=== PATIENT | male | born 2000 | race Caucasian/White ===

== ENCOUNTER 2019-03-09 15:03 | Observation (INO) ==
--- NOTE | 2019-03-09 15:17 | Emergency Department Note ---
ED Disposition Clinical Impression: Spontaneous pneumothorax Disposition: Admitted as Observation Condition on Discharge: Fair Instructions: DI for Pneumothorax Additional Instructions: Patient being admitted for 100% oxygen therapy to see if the spontaneous pneumothorax resolves if it does not he may need to have a small chest tube inserted Referrals: Srinivasan Piper MD [Primary Care Provider] - Time of Disposition: 15:52 - Critical Care Critical Care Time: No Attestation: On , the high probability of a clinically significant, sudden or life threatening deterioration of the following system(s) required my full and direct attention, intervention and personal management. The time I documented below is in addition to time spent performing reported procedures but includes the following listed in this critical care notation. Medical Decision Making - Medical Records Medical records reviewed: Yes: I reviewed the patient's medical records. - Ladarius Inquiry Pt receiving controlled substance: No Ladarius was queried for this patient: No Vital Signs: 03/09/19 15:10 Temperature 98.3 F Temperature Source Oral Pulse Rate [Right Radial] 110 H Respiratory Rate 18 Blood Pressure [Right Arm] 116/75 Blood Pressure Mean [Right Arm] 88 Blood Pressure Source [Right Arm] Automatic Cuff Blood Pressure Position [Right Arm] Sitting 02 Sat by Pulse Oximetry 98 Oxygen Delivery Method Room Air - Radiology Data #1 Image(s): Chest Image Reviewed: Yes I reviewed the patient's radiology results, Yes I reviewed the patient's radiology image, Yes I have reviewed radiologist's interpretation Repeat chest x-ray today shows the apical pneumothorax to be a little bit bigger than it was yesterday I spoke with Dr. Busch about this Chest Pain HPI - General Stated Complaint: follow up colapsed lung 02/06/19 Time Seen by Provider: 03/09/19 15:14 Source of Information: Patient - History of Present Illness HPI narrative: Patient was seen in the emergency room yesterday with right-sided chest pain worse with taking a deep breath he was found on chest x-ray to have less than 10% apical pneumothorax was treated with some high flow oxygen and sent home with instructions to return to the emergency room today to have a repeat chest x-ray done at this time he says that his pain is much better but still feels a little bit of pain Duration: intermittent - Related Data Home Medications Medication Instructions Recorded Confirmed Cetirizine HCl [All Day Allergy 10 mg PO DAILY 03/08/19 03/08/19 (cetirizine)] Previous Rx's Medication Instructions Recorded albuterol sulfate HFA 90 2 inh INHALATION Q6H PRN 30 Days 01/13/19 mcg/actuation aerosol inhaler #18 g Allergies Allergy/AdvReac Type Severity Reaction Status Date / Time penicillin G [PENICILLIN G] Allergy Intermediate I-RASH Verified 09/05/18 13:18 [facility] History - Hepatitis A Screen Attestation statement:: This patient has been screened for Hepatitis A risk factors. I have reviewed the patient's past medical history: Yes Medical History: Reports:: Asthma Denies:: Cancer, Diabetes Mellitus Type 1, Diabetes Mellitus Type 2, MRSA Laterality Cases: Bilateral: Tonsillectomy Other Surgeries: Yes: No Previous Surgery, Other Amputation: No Fractures: No - 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 Smoking Status: Never smoker Alcohol Intake: never Substance Use Type: denies use Occupational Status: employed, student Housing: house Household Members: family Family Hx:: Asthma, Cancer, Diabetes ROS Obtained: Yes All systems reviewed & no additional complaints, Yes Systems reviewed as appropriate & no additional complaints - Respiratory Respiratory: Yes system reviewed and no additional complaints, except as docu, Yes as per HPI Physical Exam - General General appearance: alert, in no apparent distress - Head Head exam: atraumatic - Eye Eye exam: Present: normal appearance - ENT ENT exam: Present: normal exam - Neck Neck exam: Present: normal inspection - Chest Chest inspection: Present: normal inspection - Respiratory Respiratory exam: Present: normal lung sounds bilaterally - Cardiovascular Cardiovascular exam: Present: regular rate - Neurological Exam Neurological exam: Present: alert, oriented X3 - Psychiatric Psychiatric exam: Present: normal affect
[2019-03-10 06:19] LABS: Basophils # 0.1 K/mm3 (0-0.2); Basophils % 1.4 % (0.1-2.0); Eosinophils # 0.1 K/mm3 (0.0-0.4); Hematocrit 45.1 % (42.0-52.0); Hemoglobin 14.7 g/dL (14.1-18.0); Lymphocytes # 2.6 K/mm3 (0.7-4.5); Lymphocytes % 37.4 % (10-50); Mean Corpuscular HGB Conc 32.6 g/dL (31.8-35.4); Mean Corpuscular Volume 94.8 fl (80-94); Monocytes # 0.7 K/mm3 (0.1-1.0); Monocytes % 9.7 % (1.7-9.3); Neutrophils # 3.5 K/mm3 (1.8-7.8); Neutrophils % 49.6 % (37.0-80.0); Platelet Count 230 K/mm3 (142-424); Red Blood Count 4.76 M/mm3 (4.60-6.20); Red Cell Distribution Width 13.2 % (11.5-17.5)
[2019-03-10 06:28] LABS: INR 1.14 (0.9-1.1); Prothrombin Time 11.8 seconds (9.4-11.8)
[2019-03-10 06:51] LABS: Albumin Level 3.7 gm/dL (3.4-5.0); Albumin/Globulin Ratio 1.4 (1.1-1.8); Anion Gap 12.4 mEq/L (5-15); Bilirubin,Total 0.7 mg/dL (0.2-1.0); Calcium 8.5 mg/dL (8.5-10.1); Globulin 2.6 gm/dl (1.3-3.2); Total Protein,Serum 6.3 gm/dL (6.4-8.2)
--- NOTE | 2019-03-10 07:26 | Pharmacy Consult Notes ---
[facility] Pharmacy VTE Monitoring - Patient Demographics Admission date: 03/09/19 Report Date: 03/10/19 Time: 07:26 Allergies/Adverse Reactions: Patient Allergies penicillin G [PENICILLIN G] Allergy (Intermediate, Verified 09/05/18 13:18) I-RASH Height: 1.85 m Weight: 60.016 kg Patient Problems: Current Active Problems Spontaneous pneumothorax (Acute) - VTE Risk Labs: VTE Related Lab Results Hgb 14.7 g/dL (14.1-18.0) 03/10/19 05:55 Hct 45.1 % (42.0-52.0) 03/10/19 05:55 Plt Count 230 K/mm3 (142-424) 03/10/19 05:55 PT 11.8 seconds (9.4-11.8) 03/10/19 05:55 INR 1.14 (0.9-1.1) H 03/10/19 05:55 BUN 9 mg/dL (7-18) 03/10/19 05:55 Creatinine 0.80 mg/dL (0.70-1.30) 03/10/19 05:55 Estimated Creat Clear 126 mL/min (50-200) 03/10/19 05:55 - Prophylaxis VTE Prophylaxis Ordered?: Yes Types of VTE Prophylaxis: TEDS Knee High Location of Applied Device: Bilateral Lower Extremeties - VTE Diagnosis Confirmed Treatment or plan recommended: Continue Current Treatment
--- NOTE | 2019-03-10 11:16 | Consult Report ---
*Admission Date: 03/09/19 *Reason for consult:: Right pneumothorax *History of present illness: This is a 18-year-old gentleman who is being seen in consultation from the service of Dr. Piper for evaluation regarding a spontaneous right-sided pneumothorax. He presented 2 days ago with increasing pain with respiration. No definitive shortness of air. A chest x-ray revealed an approximately 10% pneumothorax on the right side. He was temporarily placed on supplemental oxygen. He was essentially without symptoms after evaluation and the decision was made to discharge with close follow-up. Yesterday he presented for repeat chest films and no resolution of his pneumothorax noted. Films earlier today revealed stable pneumothorax. Review of Systems - Constitutional Denies chills - Eyes Denies change in vision - ENT Denies difficulty swallowing - *Cardiovascular Denies chest pain at rest - *Respiratory Denies cough [facility] [place] History Medical History: Reports:: Asthma Denies:: Cancer, Diabetes Mellitus Type 1, Diabetes Mellitus Type 2, MRSA *Have you ever received a pneumonia vaccine?: No *Have you received a flu vaccine this season?: No Laterality Cases: Bilateral: Tonsillectomy Other Surgeries: Yes: No Previous Surgery, Other Amputation: No Fractures: No - *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 Smoking Status: Never smoker Alcohol Intake: never Substance Use Type: denies use *Occupational Status:: employed Housing: house Household Members: family *Travel in the last 8 weeks: None Family Hx:: Asthma, Cancer, Diabetes Meds Home Medications Medication Instructions Recorded Confirmed Type albuterol sulfate HFA 90 2 inh INHALATION Q6H PRN 30 Days 01/13/19 03/09/19 Rx mcg/actuation aerosol inhaler #18 g Cetirizine HCl [All Day Allergy 10 mg PO DAILY 03/08/19 03/09/19 History (cetirizine)] Albuterol Sulfate [Albuterol 2.5 mg IH Q4HP PRN 03/10/19 03/10/19 History 0.083% 2.5mg/3mL neb] Allergies Allergy/AdvReac Type Severity Reaction Status Date / Time penicillin G [PENICILLIN G] Allergy Intermediate I-RASH Verified 09/05/18 13:18 Exam Vital signs and Labs for Last 24 Hours: Temp Pulse Resp BP Pulse Ox 98.3 F 75 17 126/69 100 03/10/19 08:00 03/10/19 08:00 03/10/19 08:00 03/10/19 08:00 03/10/19 08:00 Laboratory Results - last 24 hr 03/10/19 05:55: WBC 7.0, RBC 4.76, Hgb 14.7, Hct 45.1, MCV 94.8 H, MCH 30.9, MCHC 32.6, RDW 13.2, Plt Count 230, MPV 7.0 L, Neut % (Auto) 49.6, Lymph % (Auto) 37.4, [place] % (Auto) 9.7 H, Eos % (Auto) 2.0, Baso % (Auto) 1.4, Neut # (Auto) 3.5, Lymph # (Auto) 2.6, [place] # (Auto) 0.7, Eos # (Auto) 0.1, Baso # (Auto) 0.1 03/10/19 05:55: PT 11.8, INR 1.14 H 03/10/19 05:55: Sodium 142, Potassium 4.4, Chloride 108 H, Carbon Dioxide 26, Anion Gap 12.4, BUN 9, Creatinine 0.80, Estimated Creat Clear 126, Estimated GFR 125, Est GFR ( Amer) 151, Glucose 94, Calcium 8.5, Magnesium 1.9, Total Bilirubin 0.7, AST 13 L, ALT 17, Alkaline Phosphatase 72, Total Protein 6.3 L, Albumin 3.7, Globulin 2.6, Albumin/Globulin Ratio 1.4 I & O for Last 24 hours: Intake & Output 03/07/19 03/08/19 03/09/19 03/10/19 11:59 11:59 11:59 11:59 Intake Total 1073 / 1073 Balance 1073 / 1073 Weight 132 lb 5 oz - Constitutional no acute distress - *Routine Respiratory Exam Absent: respiratory distress - *Routine Cardiovascular Exam Present: RRR Results - Labs 03/10/19 05:55 03/10/19 05:55 Laboratory Results - last 24 hr 03/10/19 05:55: WBC 7.0, RBC 4.76, Hgb 14.7, Hct 45.1, MCV 94.8 H, MCH 30.9, MCHC 32.6, RDW 13.2, Plt Count 230, MPV 7.0 L, Neut % (Auto) 49.6, Lymph % (Auto) 37.4, [place] % (Auto) 9.7 H, Eos % (Auto) 2.0, Baso % (Auto) 1.4, Neut # (Auto) 3.5, Lymph # (Auto) 2.6, [place] # (Auto) 0.7, Eos # (Auto) 0.1, Baso # (Auto) 0.1 03/10/19 05:55: PT 11.8, INR 1.14 H 03/10/19 05:55: Sodium 142, Potassium 4.4, Chloride 108 H, Carbon Dioxide 26, Anion Gap 12.4, BUN 9, Creatinine 0.80, Estimated Creat Clear 126, Estimated GFR 125, Est GFR ( Amer) 151, Glucose 94, Calcium 8.5, Magnesium 1.9, Total Bilirubin 0.7, AST 13 L, ALT 17, Alkaline Phosphatase 72, Total Protein 6.3 L, Albumin 3.7, Globulin 2.6, Albumin/Globulin Ratio 1.4 - Imaging Chest x-ray: report reviewed, image reviewed Assessment and Plan (1) Spontaneous pneumothorax Current visit: Yes Status: Acute Category: Medical Code(s): J93.83 - Other pneumothorax Stable spontaneous pneumothorax without obvious sign of resolution. The patient is essentially without symptoms currently. Repeat chest x-ray later this afternoon. If his pneumothorax remains stable subsequent discharge with close outpatient follow-up is reasonable. I have recommended that the patient reside for the next few days at a family member's house that is "in town close to the hospital". He certainly may require chest tube placement and may ultimately require surgical intervention; however, as this represents his first episode AND since he is currently asymptomatic AND the pneumothorax does not seem to be expanding... it is reasonable to proceed at least initially without intervention.
--- NOTE | 2019-03-10 14:10 | H&P/Discharge Summary ---
General - General Admission date:: 03/09/19 Discharge date: 03/10/19 *Admission Date: 03/09/19 *Chief complaint: R Side pain *History of present illness: This is a 18-year-old gentleman who is being seen in consultation from the service of Dr. Piper for evaluation regarding a spontaneous right-sided pneumothorax. He presented 2 days ago with increasing pain with respiration. No definitive shortness of air. A chest x-ray revealed an approximately 10% pneumothorax on the right side. He was temporarily placed on supplemental oxygen. He was essentially without symptoms after evaluation and the decision was made to discharge with close follow-up. Yesterday he presented for repeat chest films and no resolution of his pneumothorax noted. Films earlier today revealed stable pneumothorax (Per Dr. Gandara). [facility] History Medical History: Reports:: Asthma Denies:: Cancer, Diabetes Mellitus Type 1, Diabetes Mellitus Type 2, MRSA *Have you ever received a pneumonia vaccine?: No *Have you received a flu vaccine this season?: No Laterality Cases: Bilateral: Tonsillectomy Other Surgeries: Yes: No Previous Surgery, Other Amputation: No Fractures: No - *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 Smoking Status: Never smoker Alcohol Intake: never Substance Use Type: denies use *Occupational Status:: employed Housing: house Household Members: family *Travel in the last 8 weeks: None Family Hx:: Asthma, Cancer, Diabetes Review of Systems - Review of Systems Review of systems:: pertinent systems reviewed and negative unless documented below - Constitutional Denies anorexia, Denies night sweats - Eyes Denies blind spots, Denies blurry vision - ENT Denies dizziness, Denies difficulty swallowing - *Cardiovascular Denies chest pain, Denies generalized swelling - *Respiratory Denies chest congestion, Denies cough - *Gastrointestinal Denies abdominal pain, Denies excessive passing of gas, Denies incontinent of stools - *Genitourinary Denies difficulty urinating, Denies painful urination - *Musculoskeletal Denies abnormal walking, Denies joint pain - Integumentary/Breasts Denies hair loss, Denies bleeding lesions - *Neurologic Denies abnormal walking, Denies behavioral changes - Psychiatric Denies abnormal sleep pattern, Denies hearing things others do not hear, Denies behavioral changes - Endocrine Denies cold intolerance, Denies heat intolerance - Hematologic/Lymphatic Denies easy bleeding, Denies easy bruising - Allergic/Immunologic Denies throat swelling, Denies tongue swelling Exam Vital signs and Labs for Last 24 Hours: Temp Pulse Resp BP Pulse Ox 98.3 F 75 17 126/69 100 03/10/19 08:00 03/10/19 08:00 03/10/19 08:00 03/10/19 08:00 03/10/19 08:00 Laboratory Results - last 24 hr 03/10/19 05:55: WBC 7.0, RBC 4.76, Hgb 14.7, Hct 45.1, MCV 94.8 H, MCH 30.9, MCHC 32.6, RDW 13.2, Plt Count 230, MPV 7.0 L, Neut % (Auto) 49.6, Lymph % (Auto) 37.4, [place] % (Auto) 9.7 H, Eos % (Auto) 2.0, Baso % (Auto) 1.4, Neut # (Auto) 3.5, Lymph # (Auto) 2.6, [place] # (Auto) 0.7, Eos # (Auto) 0.1, Baso # (Auto) 0.1 03/10/19 05:55: PT 11.8, INR 1.14 H 03/10/19 05:55: Sodium 142, Potassium 4.4, Chloride 108 H, Carbon Dioxide 26, Anion Gap 12.4, BUN 9, Creatinine 0.80, Estimated Creat Clear 126, Estimated GFR 125, Est GFR ( Amer) 151, Glucose 94, Calcium 8.5, Magnesium 1.9, Total Bilirubin 0.7, AST 13 L, ALT 17, Alkaline Phosphatase 72, Total Protein 6.3 L, Albumin 3.7, Globulin 2.6, Albumin/Globulin Ratio 1.4 I & O for Last 24 hours: Intake & Output 03/07/19 03/08/19 03/09/19 03/10/19 23:59 23:59 23:59 23:59 Intake Total 1553 / 1553 Balance 1553 / 1553 Weight 127 lb 2 oz 132 lb 5 oz - Constitutional no acute distress - *Routine HEENT Exam Head: Present: normocephalic, atraumatic Eye: Present: EOMI, PERRL, normal accommodation ENT: Present: mucous membranes moist - *Routine Neck Exam Present: supple, trachea midline. Absent: JVD, tenderness - *Routine Respiratory Exam Present: CTA bilaterally. Absent: accessory muscle use, rales, respiratory distress - *Routine Cardiovascular Exam Present: RRR - *Routine Abdominal Exam Present: soft, normoactive bowel sounds. Absent: tenderness, firm - *Routine Extremities Exam Present: full ROM, pulses intact. Absent: cyanosis, calf tenderness - Routine Back/Spine/Pelvis Exam Back/Spine: Present: full ROM. Absent: CVA tenderness - *Routine Skin Exam Present: intact, warm. Absent: cyanosis, jaundice - *Routine Neurological Exam Present: alert, oriented X3, CN II-XII intact. Absent: pronator drift, abnormal gait - Routine Psychiatric Exam Present: normal affect, normal thought process. Absent: visual hallucinations, tactile hallucinations Hospital Course Hospital Course: 18-year-old male patient sitting up in bed eating breakfast, denies any chest pain or shortness of breath, or any other concerns at this time 18-year-old male presented 2 days ago with increasing pain with respiration. No definitive shortness of air. A chest x-ray revealed an approximately 10% pneumothorax on the right side. He was temporarily placed on supplemental oxygen. He was essentially without symptoms after evaluation and the decision was made to discharge with close follow-up. Yesterday he presented for repeat chest films and no resolution of his pneumothorax noted. Films earlier today revealed stable pneumothorax. Chest x-ray this a.m. showed unchanged. Chest x-ray this afternoon showed a slightly decreased pneumothorax. Patient denies any pain, shortness of breath, or any other concerns. General surgery is seen and said that he can be released home. Will encourage patient to follow-up and Dr. Piper's office in 1 week. Patient is agreeable to these suggestions. Results Labs on day of discharge: Labs from last 24 hours 03/10/19 03/10/19 03/10/19 05:55 05:55 05:55 WBC 7.0 RBC 4.76 Hgb 14.7 Hct 45.1 MCV 94.8 H MCH 30.9 MCHC 32.6 RDW 13.2 Plt Count 230 MPV 7.0 L Neut % (Auto) 49.6 Lymph % (Auto) 37.4 [place] % (Auto) 9.7 H Eos % (Auto) 2.0 Baso % (Auto) 1.4 Neut # (Auto) 3.5 Lymph # (Auto) 2.6 [place] # (Auto) 0.7 Eos # (Auto) 0.1 Baso # (Auto) 0.1 PT 11.8 INR 1.14 H Sodium 142 Potassium 4.4 Chloride 108 H Carbon Dioxide 26 Anion Gap 12.4 BUN 9 Creatinine 0.80 Estimated Creat Clear 126 Estimated GFR 125 Est GFR ( Amer) 151 Glucose 94 Calcium 8.5 Magnesium 1.9 Total Bilirubin 0.7 AST 13 L ALT 17 Alkaline Phosphatase 72 Total Protein 6.3 L Albumin 3.7 Globulin 2.6 Albumin/Globulin Ratio 1.4 - Additional Comments Rounded with Dr. Piper, all orders per Dr. Piper 1. We will discharge home today with follow-up in office next week DS: Diagnosis - Discharge Diagnosis (1) Spontaneous pneumothorax Status: Acute Discharge Plan - Patient Discharge Instructions ACTIVITY: Continue current activity DIET: continue same diet - Follow up Plan Follow up with: Tyler Naik APRN [Nurse Practitioner] - 1 week Disposition: Home, Self-Fpc Medications: Home Medications Medication Instructions Recorded Confirmed Type albuterol sulfate HFA 90 2 inh INHALATION Q6H PRN 30 Days 01/13/19 03/09/19 Rx mcg/actuation aerosol inhaler #18 g Cetirizine HCl [All Day Allergy 10 mg PO DAILY 03/08/19 03/09/19 History (cetirizine)] Albuterol Sulfate [Albuterol 2.5 mg IH Q4HP PRN 03/10/19 03/10/19 History 0.083% 2.5mg/3mL neb] Prescriptions/Medication Reconciliation: Continued albuterol sulfate HFA 90 mcg/actuation aerosol inhaler 2 inh INHALATION Q6H PRN 30 Days #18 g PRN Reason: shortness of breath or wheezing Albuterol Sulfate [Albuterol 0.083% 2.5mg/3mL neb] 2.5 mg IH Q4HP PRN PRN Reason: Shortness Of Breath Cetirizine HCl [All Day Allergy (cetirizine)] 10 mg PO DAILY - Problem Reconciliation Problems Reviewed?: Yes
== END 2019-03-10 16:20 | disposition home or self-care (01) ==
LOC: ER 15:03 → 2ND 15:03
PROVIDERS: ADMIT Emergency Medicine; ATTEND Emergency Medicine
DX: J93.83 Other pneumothorax
CPT/HCPCS: 36415; 71020; 71046; 80053; 83735; 85025; 85610; 94761; 99283; G0378

== ENCOUNTER → 2019-03-15 14:30 | Outpatient (CLI) | payer OTHER, SELFPAY ==
--- NOTE | 2019-03-15 14:36 | XR_ITS ---
PROCEDURE: XR CHEST 2V CLINICAL HISTORY: pneumothorax Follow-up pneumothorax COMPARISON: XR CHEST 2V from 03/09/2019 XR CHEST 2V from 03/10/2019 XR CHEST 2V from 03/10/2019 FINDINGS: The cardiomediastinal silhouette and pulmonary vascularity are within normal limits. The lungs are clear without infiltrates, suspicious nodules, or pleural effusions. Previously noted right apical pneumothorax is not readily apparent on today's exam. There is a faint density along the inferior aspect of the right 1st rib consistent with a earth burner shadow. IMPRESSION: Resolved right apical pneumothorax Dictated by: Cayden Busch MD 03/15/2019 15:01 Electronically signed by Cayden Busch MD in [place] 03/15/2019 15:01
== END ==
PROVIDERS: PCP Emergency Medicine; Visit Provider Surgery
DX: Z12.11 Encounter for screening for malignant neoplasm of colon (principal)
CPT/HCPCS: 71046

== ENCOUNTER 2019-12-31 15:18 | Emergency (ER) | payer OTHER, SELFPAY ==
--- NOTE | 2019-12-31 15:12 | ECG_ITS ---
APPROVED REPORT Exam: Resting ECG HR:76 bpm ECG Measurements Heart Rate 76 AXES VA 114 P 60 QRSd 122 QRS 87 QT 368 T 58 QTc 414 <Conclusion> Normal sinus rhythm with sinus arrhythmia Right bundle branch block Abnormal ECG Electronically signed by : John Vang, 12/31/2019 21:46:51
[2019-12-31 15:19] VITALS: BP 153/80; PULSE 82; RESP 18; TEMP 36.6; O2SAT 100; BMI 17.6
--- NOTE | 2019-12-31 15:22 | PC.NURSE ---
ER at BS performing BS ultrasound
--- NOTE | 2019-12-31 15:24 | XR_ITS ---
PROCEDURE: XR CHEST 2V Patient Age:19Y CLINICAL HISTORY: Chest pain: Short of breath, hx of spontaneous pneumo. COMPARISON: XR CHEST 2V from 03/10/2019 XR CHEST 2V from 03/10/2019 XR CHEST 2V from 03/15/2019 FINDINGS: PA and lateral CXR performed today and compared to previous studies The lungs are well expanded and clear with nothing definitely acute. No significant change since previous February 2019 CXR . The lungs are well expanded and clear with no pneumothorax. No pleural effusion. No lesions evident. Heart, mohan and mediastinal structures unremarkable. Normal pulmonary vascularity. Chest wall in T-spine unremarkable but modest AP dimension of chest but IMPRESSION: No acute findings. Lungs clear. No pneumothorax. No pneumonia Dictated by: Jeffery Wiseman MD 12/31/2019 16:32 Electronically signed by Jeffery Wiseman MD in [place] 12/31/2019 16:32
[2019-12-31 15:26] VITALS: BP 121/68; PULSE 81; O2SAT 99
[2019-12-31 15:29] LABS: Basophils # 0.1 K/mm3 (0-0.2); Basophils % 0.9 % (0.1-2.0); Eosinophils # 0.1 K/mm3 (0.0-0.4); Eosinophils % 1.2 % (0.1-12.0); Hematocrit 47.5 % (42.0-52.0); Hemoglobin 16.7 g/dL (14.1-18.0); Lymphocytes # 2.6 K/mm3 (0.7-4.5); Lymphocytes % 30.4 % (10-50); Mean Corpuscular HGB Conc 35.3 g/dL (31.8-35.4); Mean Corpuscular Hemoglobin 31.9 pg (27.0-31.2); Mean Corpuscular Volume 90.6 fl (80-94); Mean Platelet Volume 7.2 fl (7.4-10.4); Monocytes # 0.6 K/mm3 (0.1-1.0); Monocytes % 7.1 % (1.7-9.3); Neutrophils # 5.1 K/mm3 (1.8-7.8); Neutrophils % 60.3 % (37.0-80.0); Platelet Count 257 K/mm3 (142-424); Red Blood Count 5.24 M/mm3 (4.60-6.20); Red Cell Distribution Width 12.4 % (11.5-17.5); White Blood Count 8.4 K/mm3 (4.5-13.0)
[2019-12-31 15:36] LABS: Anion Gap 14.8 mEq/L (5-15); Blood Urea Nitrogen 12 mg/dl (9-20); Calcium 9.4 mg/dl (8.4-10.2); Carbon Dioxide 30 mmol/L (22.0-30.0); Chloride 101 mmol/L (98-107); Creatinine Clearance Estimated 109 mL/min (50-200); Estimated Glomerular Filt Rate 108 ml/min (>60); GFR (African American) 130 ML/MIN (>60); Glucose 69 mg/dl (74-100); Potassium 3.8 mmoL/L (3.5-5.1); Sodium 142 mmol/L (136-145)
--- NOTE | 2019-12-31 15:40 | [facility].EDCP ---
ED Disposition Clinical Impression: Costochondritis, Chest pain, atypical Disposition: Home, Self-Care Condition on Discharge: Good Instructions: DI for Costochondritis Additional Instructions: You have been evaluated for chest pain, likely due to inflammation within your ribs called costochondritis. Please take ibuprofen every 6 hours. Use ice over the area. Follow-up with your primary care physician in 1 to 2 days for symptom recheck. Return to the emergency department for any new or worsening symptoms. Referrals: Srinivasan Piper MD [Primary Care Provider] - Forms: Work/School Release Time of Disposition: 16:19 - Critical Care Critical Care Time: No Attestation: On , the high probability of a clinically significant, sudden or life threatening deterioration of the following system(s) required my full and direct attention, intervention and personal management. The time I documented below is in addition to time spent performing reported procedures but includes the following listed in this critical care notation. Medical Decision Making - Medical Records Medical records reviewed: Yes: I reviewed the patient's medical records. - [place] Inquiry Pt receiving controlled substance: No Vital Signs: 12/31/19 15:19 12/31/19 15:26 12/31/19 15:56 Temperature 97.9 F Temperature Source Oral Pulse Rate [Right Radial] 82 81 83 Respiratory Rate 18 Blood Pressure [Right Arm] 153/80 H 121/68 103/63 L Blood Pressure Mean [Right Arm] 104 85 76 Blood Pressure Source [Right Arm] Automatic Cuff Automatic Cuff Automatic Cuff Blood Pressure Position [Right Arm] Sitting Sitting Sitting 02 Sat by Pulse Oximetry 100 99 98 Oxygen Delivery Method Room Air Room Air Room Air 12/31/19 16:35 Temperature Temperature Source Pulse Rate [Right Radial] 74 Respiratory Rate Blood Pressure [Right Arm] 111/70 Blood Pressure Mean [Right Arm] 83 Blood Pressure Source [Right Arm] Automatic Cuff Blood Pressure Position [Right Arm] Sitting 02 Sat by Pulse Oximetry 97 Oxygen Delivery Method Room Air - Lab Data Lab Results 12/31/19 15:20: WBC 8.4, RBC 5.24, Hgb 16.7, Hct 47.5, MCV 90.6, MCH 31.9 H, MCHC 35.3, RDW 12.4, Plt Count 257, MPV 7.2 L, Neut % (Auto) 60.3, Lymph % (Auto) 30.4, [place] % (Auto) 7.1, Eos % (Auto) 1.2, Baso % (Auto) 0.9, Neut # (Auto) 5.1, Lymph # (Auto) 2.6, [place] # (Auto) 0.6, Eos # (Auto) 0.1, Baso # (Auto) 0.1 12/31/19 15:20: Sodium 142, Potassium 3.8, Chloride 101, Carbon Dioxide 30, Anion Gap 14.8, BUN 12, Creatinine 0.90, Estimated Creat Clear 109, Estimated GFR 108, Est GFR ( Amer) 130, Glucose 69 L, Calcium 9.4, Troponin I < 0.01 Result diagrams: 12/31/19 15:20 12/31/19 15:20 Orders (Tests/Meds): ORDERS Category Date Time Status Troponin I Q3H Lab 12/31/19 18:30 Ordered Troponin I Q3H Lab 12/31/19 21:30 Ordered - Radiology Data #1 Image(s): Chest Image Reviewed: Yes I reviewed the patient's radiology results, Yes I reviewed the patient's radiology image CXR IMPRESSION: No acute findings. Lungs clear. No pneumothorax. No pneumonia Medical Decision Narrative: In summary this is a 19-year-old male presenting to the emergency department with left-sided chest pain. Patient is overall well-appearing on arrival. Vital signs are stable. Differential diagnoses include spontaneous pneumothorax, intercostal pain, myocarditis, pericarditis. Plan to obtain CBC, BMP, chest x-ray, EKG, troponin profile. Bedside ultrasound shows lung sliding present bilaterally. No pericardial effusion. Adequate systolic ejection fraction. No RV dilation. Patient is PERC negative. Initial EKG shows sinus rhythm with right bundle branch block. Chest x-ray shows no abnormality within the thorax. Specifically no pneumothorax. Laboratory results are generally unremarkable. Initial troponin is not elevated. Patient counseled that his pain is likely musculoskeletal in nature. Concern for
[2019-12-31 15:49] LABS: Troponin I < 0.01 ng/ml (0.00-0.034)
[2019-12-31 15:56] VITALS: BP 103/63; PULSE 83; O2SAT 98
[2019-12-31 16:35] VITALS: BP 111/70; PULSE 74; O2SAT 97
[2019-12-31 16:54] VITALS: BP 111/70; PULSE 74; RESP 17; TEMP 36.6; O2SAT 98
== END 2019-12-31 16:55 | disposition home or self-care (01) ==
PROVIDERS: Emergency Provider Emergency Medicine; PCP Emergency Medicine
DX: M94.0 Chondrocostal junction syndrome [Tietze] (principal); R07.89 Other chest pain; J45.909 Unspecified asthma, uncomplicated; Z88.0 Allergy status to penicillin
CPT/HCPCS: 71046; 80048; 84484; 85025; 93005; 99283

== ENCOUNTER → 2020-04-19 11:47 | Outpatient (CLI) | payer OTHER, SELFPAY ==
[2020-04-19 18:43] LABS: Coronavirus 19 IgG Antibody Negative (Negative); Coronavirus 19 IgM Antibody Negative (Negative)
== END ==
PROVIDERS: PCP Emergency Medicine; Visit Provider Nurse Practitioner Family
DX: Z03.818 Encounter for observation for suspected exposure to other biological agents ruled out (principal)
CPT/HCPCS: 86328

== ENCOUNTER → 2021-04-02 18:30 | Outpatient (CLI) | payer OTHER, SELFPAY ==
[2021-04-02 19:09] LABS: Basophils # 0.1 K/mm3 (0-0.2); Basophils % 1.3 % (0.1-2.0); Eosinophils % 0.8 % (0.1-12.0); Hematocrit 53.2 % (42.0-52.0); Hemoglobin 17.5 g/dL (14.1-18.0); Lymphocytes # 1.8 K/mm3 (0.7-4.5); Lymphocytes % 36.9 % (10-50); Mean Corpuscular HGB Conc 32.8 g/dL (31.8-35.4); Mean Corpuscular Hemoglobin 30.7 pg (27.0-31.2); Mean Corpuscular Volume 93.5 fl (80-94); Mean Platelet Volume 7.7 fl (7.4-10.4); Monocytes # 0.3 K/mm3 (0.1-1.0); Monocytes % 6.8 % (1.7-9.3); Neutrophils # 2.6 K/mm3 (1.8-7.8); Neutrophils % 54.2 % (37.0-80.0); Platelet Count 260 K/mm3 (142-424); Red Blood Count 5.69 M/mm3 (4.60-6.20); Red Cell Distribution Width 12.2 % (11.5-17.5); White Blood Count 4.8 K/mm3 (4.8-10.8)
[2021-04-02 19:28] LABS: Alanine Aminotransferase 14 U/L (12-78); Albumin Level 4.9 g/dl (3.5-5.0); Albumin/Globulin Ratio 1.8 (1.1-1.8); Alkaline Phosphatase 67 U/L (38-126); Anion Gap 17.7 mEq/L (5-15); Aspartate Amino Transferase 25 U/L (17-59); Bilirubin,Total 0.8 mg/dl (0.2-1.3); Blood Urea Nitrogen 13 mg/dl (9-20); Calcium 9.8 mg/dl (8.4-10.2); Carbon Dioxide 26 mmol/L (22.0-30.0); Chloride 102 mmol/L (98-107); Estimated Glomerular Filt Rate 122 ml/min (>60); GFR (African American) 148 ML/MIN (>60); Globulin 2.8 g/dL (1.3-3.2); Glucose 87 mg/dl (74-100); Potassium 4.7 mmoL/L (3.5-5.1); Sodium 141 mmol/L (136-145); Total Protein,Serum 7.7 g/dl (6.3-8.2)
[2021-04-02 19:46] LABS: Free T4 (Free Thyroxine) 1.09 ng/dl (0.78-2.19)
[2021-04-02 20:00] LABS: Thyroid Stimulating Hormone 1.49 uIU/mL (0.465-4.68)
== END ==
PROVIDERS: Visit Provider Nurse Practitioner Family
DX: R53.83 Other fatigue (principal); N50.811 Right testicular pain
CPT/HCPCS: 80053; 84439; 84443; 85025

== ENCOUNTER 2022-05-12 11:02 | Emergency (ER) | payer OTHER, SELFPAY ==
[2022-05-12 11:39] VITALS: BP 109/78; PULSE 75; RESP 16; TEMP 36.9; O2SAT 97; BMI 18.4
[2022-05-12 11:41] LABS: UTC Strep Screen (Rapid) Negative (Negative)
--- NOTE | 2022-05-12 11:44 | EXP.UTC ---
Discharge Plan Disposition Patient Disposition: Home, Self-Care Condition: Good Prescriptions Prescriptions: No Action albuterol sulfate [ProAir HFA] 90 mcg/actuation HFA aerosol inhaler See Rx Instructions .ROUTE .COMPLEX Qty: 8.5 3RF Dose Instruction: INHALE 2 PUFFS BY MOUTH EVERY 6 HOURS NEEDED FOR SHORTNESS OF BREATH OR WHEEZING Rx Instructions: INHALE 2 PUFFS BY MOUTH EVERY 6 HOURS NEEDED FOR SHORTNESS OF BREATH OR WHEEZING Referrals Follow up/Referrals: Srinivasan Piper MD [Primary Care Provider] - See instructions Activity Restrictions/Add. Instructions Additional Instructions/Restrictions: No sign of a bacterial infection. Likely viral. Viruses can take 7-14 days to run their course. Nasal saline and bulb syringe or nose Arabella to remove nasal drainage to help with nasal congestion. Hard to eat, drink, sleep with nasal congestion so important to keep this cleaned out. Monitor temp. Tylenol or Motrin as needed for pain or fever Encourage fluids, water, Gatorade, Powerade, Pedialyte if /toddler/child Warm salt water gargles Warm fluids Sore throat lozenges Sleep elevated Humidifier/vaporizer Follow-up immediately for new or worsening symptoms or no noticeable improvement over the next 48-72 hours. Clinical Impressions Clinical Impression: Upper respiratory infection, viral Instructions Patient Instructions: DI for Viral Upper Respiratory Infection -- Adult Discharge ED Provider: Chalino ([facility])Soham [facility] [place] HPI General Stated complaint: sore throat, congestion Mode of Arrival: Ambulatory Source of Information: Patient Limitations: No Limitations Time Seen by Provider: 05/12/22 11:44 Description of Symptoms (Recalled from Triage Doc. by RN): pt comes in with c/o sore throat, body aches, fever with chills. symptoms began yesterday HEENT Symptoms (Recalled from RN notes): Yes Resp Symptoms (Recalled from RN notes): Yes Skin Symptoms (Recalled from RN notes): No MS Symptoms (Recalled from RN notes): No Functional Status (Recalled from RN notes): n/a History of Present Illness Provider Complaint: 21 yr old male presents with c/o sore throat, body aches, fever with chills. symptoms began yesterday other family are ill Related Data Previous Rx's Medication Instructions Recorded albuterol sulfate 90 mcg/actuation See Rx Instructions .Route 01/10/21 aerosol inhaler (ProAir HFA) .COMPLEX #8.5 grams Allergies Allergy/AdvReac Type Severity Reaction Status Date / Time penicillin G [PENICILLIN G] Allergy Intermediate I-RASH Verified 05/12/22 11:41 Worker's Comp Is this a Worker's Comp case?: No [facility] Disclaimer: The information contained in this section may have been updated after the patient was seen, as this information can be updated by other users. 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: Never smoker alcohol intake: never substance use type: denies use current occupational status: other Travel in the last 8 weeks: None household members: family housing: house ROS Obtained: Yes All systems reviewed & no additional complaints except as documented Constitutional Constitutional: Reports system reviewed and no additional complaints, except as documented, Reports as per HPI, Reports body ache and Reports fever(s) Eyes Eyes: Reports system reviewed and no additional complaints, except as documented and Reports as per HPI ENT Ears, Nose, Mouth, and Throat: Reports system reviewed and no additional complaints, except as documented, Reports as per HPI and Reports nasal congestion Cardiovascular Cardiovascular: Reports system reviewed and no additional complaints, except as documented Respiratory Respiratory: Reports system reviewed and no additional complaints, except as documented Gastrointestinal Gastrointestingal: Reports system reviewed and no additional complaints, except as documented Musculoskeleta
[2022-05-12 12:06] VITALS: BP 109/78; PULSE 75; RESP 16; TEMP 36.9
== END 2022-05-12 12:07 | disposition home or self-care (01) ==
PROVIDERS: Emergency Provider Nurse Practitioner Family; PCP Emergency Medicine
DX: J06.9 Acute upper respiratory infection, unspecified (principal); B34.9 Viral infection, unspecified
CPT/HCPCS: 87275; 87276; 87880; 99212; G0463

== ENCOUNTER → 2022-05-15 14:07 | Outpatient (CLI) | payer OTHER, SELFPAY ==
[2022-05-15 13:34] LABS: Adenovirus,PCR Not Detected (NotDetected); Bordetella Pertussis Not Detected (NotDetected); Chlamydophila Pneumoniae, PCR Not Detected (NotDetected); Coronavirus 229E Not Detected (NotDetected); Coronavirus NL63 Not Detected (NotDetected); Coronavirus OC43 Not Detected (NotDetected); Coronovirus HKU1,PCR Not Detected (NotDetected); Human Metapneumovirus Not Detected (NotDetected); Influenza A, PCR Not Detected (NotDetected); Influenza AH1, 2009 Not Detected (NotDetected); Influenza AH1, PCR Not Detected (NotDetected); Influenza AH3,PCR Not Detected (NotDetected); Influenza B, PCR Not Detected (NotDetected); Mycoplasma Pneumoniae, PCR Not Detected (NotDetected); Parainfluenza 1, PCR Not Detected (NotDetected); Parainfluenza 2, PCR Not Detected (NotDetected); Parainfluenza 3, PCR Not Detected (NotDetected); Parainfluenza 4, PCR Not Detected (NotDetected); Respiratory Syncytial Virus Not Detected (NotDetected); Rhinovirus/Enterovirus Not Detected (NotDetected)
[2022-05-15 22:26] LABS: Coronavirus 19, PCR Detected (NotDetected)
== END ==
PROVIDERS: PCP Nurse Practitioner Family; Visit Provider Nurse Practitioner Family
DX: U07.1 COVID-19 (principal); J02.9 Acute pharyngitis, unspecified; R68.89 Other general symptoms and signs
CPT/HCPCS: 87581; 87632; 87798; C9803; U0003; U0005

== ENCOUNTER 2022-08-01 16:53 | Emergency (ER) | payer OTHER, SELFPAY ==
[2022-08-01 17:00] VITALS: BP 137/91; PULSE 89; RESP 18; TEMP 36.8; O2SAT 100; BMI 17.1
--- NOTE | 2022-08-01 17:11 | XR_ITS ---
PROCEDURE INFORMATION: Exam: XR Chest Exam date and time: 08/01/2022 5:13 PM Age: 22 years old Clinical indication: Cough; Additional info: Pain. History of spontaneous pneumothorax. TECHNIQUE: Imaging protocol: Radiologic exam of the chest. Views: 2 views. COMPARISON: CR XR CHEST 2V 12/31/2019 3:36 PM FINDINGS: Lungs: Mild chronic pulmonary hyperinflation. No acute findings. No consolidation. Pulmonary vessels do not appear congested. Pleural spaces: Unremarkable. No significant pleural effusion. No pneumothorax. Heart/Mediastinum: The cardiac silhouette is normal. Bones/joints: Minimal thoracolumbar scoliotic curvature.There is no evidence of acute fracture. IMPRESSION: 1. Mild chronic pulmonary hyperinflation. 2. No acute findings.
--- NOTE | 2022-08-01 17:28 | EXP.UTC ---
Discharge Plan Disposition Patient Disposition: Home, Self-Care Condition: Good Prescriptions Prescriptions: New azithromycin [azithromycin] 250 mg tablet 250 mg PO DIRECTED Qty: 6 0RF Rx Instructions: Take two (2) tablets on day #1, then one (1) tablet day #2 thru #5 fluticasone propionate [fluticasone propionate] 50 mcg/actuation spray,suspension 1 spray intranasal DAILY Qty: 9.9 0RF No Action cefdinir 300 mg capsule 300 mg PO BID 10 Days Qty: 20 0RF albuterol sulfate [ProAir HFA] 90 mcg/actuation HFA aerosol inhaler See Rx Instructions .ROUTE .COMPLEX Qty: 8.5 3RF Dose Instruction: INHALE 2 PUFFS BY MOUTH EVERY 6 HOURS NEEDED FOR SHORTNESS OF BREATH OR WHEEZING Rx Instructions: INHALE 2 PUFFS BY MOUTH EVERY 6 HOURS NEEDED FOR SHORTNESS OF BREATH OR WHEEZING Referrals Follow up/Referrals: Tyler Naik APRN [Primary Care Provider] - See instructions Activity Restrictions/Add. Instructions Additional Instructions/Restrictions: Start antibiotic patient to take as ordered for a full length of time even if you feel better. Sinus infections do not get better overnight. It may take 2-3 days to notice much improvement so be sure to use conservative measures as discussed for symptoms. Flonase 1 spray each nostril daily to help with nasal congestion, sinus and ear pressure/information Increase fluids Humidifier/vaporizer as needed Tylenol and ibuprofen as needed for fever or pain. If symptoms do not improve or get worse return or be seen in the ER Follow-up with primary care this week Clinical Impressions Clinical Impression: Sinusitis Instructions Patient Instructions: DI for Sinusitis Discharge ED Provider: Chalino ([facility] [facility] [place] General Stated complaint: SOA cough denise Mode of Arrival: Ambulatory Source of Information: Patient Limitations: No Limitations Time Seen by Provider: 08/01/22 17:28 Description of Symptoms (Recalled from Triage Doc. by RN): PATIENT C/O HEAVY BREATHING, RUNNY NOSE, AND CONGESTION HEENT Symptoms (Recalled from RN notes): Yes Resp Symptoms (Recalled from RN notes): Yes Skin Symptoms (Recalled from RN notes): No MS Symptoms (Recalled from RN notes): No Functional Status (Recalled from RN notes): WNL History of Present Illness Provider Complaint: 22 yr old male presents for heavy breathing, cough, green nasal drainage, sinus pressure and sinus pain for 3 days Related Data Previous Rx's Medication Instructions Recorded albuterol sulfate 90 mcg/actuation See Rx Instructions .Route 01/10/21 aerosol inhaler (ProAir HFA) .COMPLEX #8.5 grams cefdinir 300 mg capsule 300 mg PO BID 10 days #20 caps 05/15/22 azithromycin 250 mg tablet 250 mg PO DIRECTED #6 tabs 08/01/22 fluticasone propionate 50 1 spray intranasal DAILY #9.9 mL 08/01/22 mcg/actuation nasal spray,suspension Allergies Allergy/AdvReac Type Severity Reaction Status Date / Time penicillin G [PENICILLIN G] Allergy Intermediate I-RASH Verified 05/15/22 10:44 Worker's Comp Is this a Worker's Comp case?: No [facility] Disclaimer: The information contained in this section may have been updated after the patient was seen, as this information can be updated by other users. 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) Smoking Status: Never smoker alcohol intake: never substance use type: denies use current occupational status: other Travel in the last 8 weeks: None household members: family housing: house ROS Obtained: Yes All systems reviewed & no additional complaints except as documented Constitutional Constitutional: Reports system reviewed and no additional complaints, except as documented Eyes Eyes: Reports system reviewed and no additional complaints, except as documented ENT Ears, Nose, Mouth, and Throat: Reports system reviewed and no additional complaints, except as documented, Reports as per HPI, Report
[2022-08-01 17:55] VITALS: BP 137/91; PULSE 89; RESP 18; TEMP 36.8; O2SAT 100
== END 2022-08-01 18:12 | disposition home or self-care (01) ==
PROVIDERS: Emergency Provider Nurse Practitioner Family; PCP Nurse Practitioner Family
DX: J32.9 Chronic sinusitis, unspecified (principal)
CPT/HCPCS: 71046; 99212; 99213; G0463

== ENCOUNTER → 2022-10-20 11:06 | Outpatient (CLI) | payer OTHER, SELFPAY ==
[2022-10-20 11:40] LABS: Basophils # 0.1 K/mm3 (0-0.2); Basophils % 1.5 % (0.1-2.0); Eosinophils # 0.1 K/mm3 (0.0-0.4); Eosinophils % 1.4 % (0.1-12.0); Hematocrit 51.1 % (42.0-52.0); Hemoglobin 16.3 g/dL (14.1-18.0); Lymphocytes # 1.8 K/mm3 (0.7-4.5); Lymphocytes % 36.2 % (10-50); Mean Corpuscular HGB Conc 31.9 g/dL (31.8-35.4); Mean Corpuscular Hemoglobin 29.5 pg (27.0-31.2); Mean Corpuscular Volume 92.7 fl (80-94); Mean Platelet Volume 7.6 fl (7.4-10.4); Monocytes # 0.4 K/mm3 (0.1-1.0); Monocytes % 8.4 % (1.7-9.3); Neutrophils # 2.7 K/mm3 (1.8-7.8); Neutrophils % 52.6 % (37.0-80.0); Platelet Count 244 K/mm3 (142-424); Red Blood Count 5.52 M/mm3 (4.60-6.20); Red Cell Distribution Width 12.4 % (11.5-17.5); White Blood Count 5.1 K/mm3 (4.8-10.8)
[2022-10-24 11:48] LABS: D001-IgE D pteronyssinus <0.10 kU/L (Class 0); D002-IgE D farinae <0.10 kU/L (Class 0); E001-IgE Cat Dander <0.10 kU/L (Class 0); E005-IgE Dog Dander <0.10 kU/L (Class 0); E072-IgE Mouse Urine <0.10 kU/L (Class 0); G002-IgE Bermuda Grass <0.10 kU/L (Class 0); G006-IgE Timothy Grass <0.10 kU/L (Class 0); I006-IgE Cockroach, German <0.10 kU/L (Class 0); Immunoglobulin E, Total 35 IU/mL (6-495); M001-IgE Penicillium chrysogen <0.10 kU/L (Class 0); M002-IgE Cladosporium herbarum <0.10 kU/L (Class 0); M003-IgE Aspergillus fumigatus <0.10 kU/L (Class 0); M006-IgE Alternaria alternata <0.10 kU/L (Class 0); T001-IgE Maple/Box Elder <0.10 kU/L (Class 0); T003-IgE Common Silver Birch <0.10 kU/L (Class 0); T006-IgE Cedar, Mountain <0.10 kU/L (Class 0); T007-IgE Oak, White <0.10 kU/L (Class 0); T008-IgE Elm, American <0.10 kU/L (Class 0); T010-IgE Walnut <0.10 kU/L (Class 0); T011-IgE Maple Leaf Sycamore <0.10 kU/L (Class 0); T014-IgE Cottonwood <0.10 kU/L (Class 0); T015-IgE Ash, White 0.16 kU/L (Class 0/I); T022-IgE Pecan, Hickory <0.10 kU/L (Class 0); T070-IgE White Mulberry <0.10 kU/L (Class 0); W001-IgE Ragweed, Short <0.10 kU/L (Class 0); W011-IgE Thistle, Russian <0.10 kU/L (Class 0); W014-IgE Pigweed, Common <0.10 kU/L (Class 0); W018-IgE Sheep Sorrel <0.10 kU/L (Class 0)
== END ==
PROVIDERS: PCP Emergency Medicine; Visit Provider Internal Medicine Pulmonary Disease
DX: J30.9 Allergic rhinitis, unspecified (principal); J45.909 Unspecified asthma, uncomplicated
CPT/HCPCS: 36415; 82785; 85025; 86003

== ENCOUNTER → 2022-12-22 09:52 | Outpatient (CLI) | payer OTHER, SELFPAY ==
--- NOTE | 2022-12-22 10:40 | PC.NURSE ---
PFT completed without incident. Albuterol 0.083% given via HHN, per protocol, Pt tolerated well.
== END ==
PROVIDERS: PCP Nurse Practitioner Family; Visit Provider Internal Medicine Pulmonary Disease
DX: R06.09 Other forms of dyspnea (principal); J44.9 Chronic obstructive pulmonary disease, unspecified
CPT/HCPCS: 94060; 94726; 94729

== ENCOUNTER 2023-05-13 18:07 | Emergency (ER) | payer OTHER, SELFPAY ==
[2023-05-13 18:15] VITALS: BP 121/65; PULSE 111; RESP 20; TEMP 37.7; O2SAT 95; BMI 17.9
[2023-05-13 18:29] VITALS: BP 121/65; PULSE 111; RESP 20; TEMP 37.7; O2SAT 95
--- NOTE | 2023-05-13 18:29 | EXP.UTC ---
Discharge Plan Disposition Patient Disposition: Home, Self-Care Condition: Good Prescriptions Prescriptions: No Action budesonide-formoterol [Symbicort] 80-4.5 mcg/actuation HFA aerosol inhaler 1 inh inhalation QID PRN (Reason: shortness of breath or wheezing) 90 Days Qty: 10.2 2RF Referrals Follow up/Referrals: Danielle Jean PA [Primary Care Provider] - See instructions Activity Restrictions/Add. Instructions Additional Instructions/Restrictions: *Monitor Temp, Over the counter Motrin or Tylenol as directed/as needed Tylenol every 4 hours and Motrin every 6 hours (as long as your family doctor has told you that you can take it) for fever or pain. and straight to ER if unable to lower temp less than 101.0 after medication given *Warm salt water gargles may help to soothe the throat *Throat Lozenges? *Warm fluids like tea with honey may help to soothe the throat? *Sleep elevated *Humidifier/Vaporizer Your throat swab was sent for culture. Those results are typically sent to your primary care. Be sure to follow up in 2-3 days with your family doctor/primary care physician if no improvement so they can review those result and treat if necessary. If you don?t have a primary care doctor, I recommend you get one but in the mean time, you will have to return to a walk in clinic Follow up IMMEDIATELY for new or worsening symptoms or no Noticeable improvement over the next 48-72 hours. 911 for difficulty breathing or swallowing You were tested for today for COVID19 your test result should be back in the next 24 hours, you may Check your results on the [facility] My Health Portal if your COVID test is positive you will need to Quarantine for 5 days Clinical Impressions Clinical Impression: Upper respiratory infection, viral Stand Alone Forms Stand Alone Forms: Work/School Release Instructions Patient Instructions: DI for Viral Syndrome Discharge ED Provider: Carli Valentine [facility] General Stated complaint: sore throat, body aches, cough Mode of Arrival: Ambulatory Source of Information: Patient Limitations: No Limitations Time Seen by Provider: 05/13/23 18:29 Description of Symptoms (Recalled from Triage Doc. by RN): PATIENT C/O BODY ACHES, CONGESTION, WEAKNESS, COUGH AND SORE THROAT SINCE YESTERDAY HEENT Symptoms (Recalled from RN notes): Yes Resp Symptoms (Recalled from RN notes): Yes Skin Symptoms (Recalled from RN notes): No MS Symptoms (Recalled from RN notes): No Functional Status (Recalled from RN notes): WNL History of Present Illness Provider Complaint: Patient states that he started feeling bad yesterday States that his girlfriend was sick with something but she is feeling better now but yesterday he started with sore throat, headache, body aches and chills and just feeling weak and fatigued States that today his throat felt a little better but he was still feeling like he had the flu or something so he came in to get checked Related Data Previous Rx's Medication Instructions Recorded budesonide-formoterol HFA 80 1 inh inhalation QID PRN shortness 10/20/22 mcg-4.5 mcg/actuation aerosol of breath or wheezing 90 days inhaler (Symbicort) #10.2 grams Allergies Allergy/AdvReac Type Severity Reaction Status Date / Time penicillin G [PENICILLIN G] Allergy Intermediate I-RASH Verified 01/14/23 14:58 Worker's Comp Is this a Worker's Comp case?: No [facility] Disclaimer: The information contained in this section may have been updated after the patient was seen, as this information can be updated by other users. Medical History (Updated 05/13/23 @ 18:33 by Carli Valentine APRN) Asthma Chest pain, atypical Contact dermatitis due to poison vine Dyspnea on exertion Mild intermittent asthma SOB (shortness of breath) Surgical History History of tonsillectomy Family History (Reviewed 01/14/23 @ 14:49 by Fátima Gudino
[2023-05-13 18:30] LABS: UTC Influenza A Antigen Negative (Negative); UTC Influenza B Antigen Negative (Negative); UTC Strep Screen (Rapid) Negative (Negative)
== END 2023-05-13 18:45 | disposition home or self-care (01) ==
PROVIDERS: Emergency Provider Nurse Practitioner; PCP Physician Assistant
DX: U07.1 COVID-19 (principal); R07.0 Pain in throat; R51.9 Headache, unspecified; R50.9 Fever, unspecified; R05.9 Cough, unspecified; R09.81 Nasal congestion; R53.83 Other fatigue; M79.18 Myalgia, other site; J45.909 Unspecified asthma, uncomplicated
CPT/HCPCS: 87635; 87804; 87880; 99212; 99213; G0463

== ENCOUNTER 2023-06-10 17:01 | Emergency (ER) | payer OTHER, SELFPAY ==
[2023-06-10 18:35] VITALS: BP 134/68; PULSE 92; RESP 20; TEMP 37.7; O2SAT 98; BMI 17.6
--- NOTE | 2023-06-10 19:05 | ED_ITS ---
Discharge Plan Disposition Patient Disposition: Home, Self-Care Condition: Good Prescriptions Prescriptions: No Action budesonide-formoterol [Symbicort] 80-4.5 mcg/actuation HFA aerosol inhaler 1 inh inhalation QID PRN (Reason: shortness of breath or wheezing) 90 Days Qty: 10.2 2RF Referrals Follow up/Referrals: Tyler Naik APRN [Primary Care Provider] - See instructions Activity Restrictions/Add. Instructions Additional Instructions/Restrictions: * Start Tamiflu today if you are going to take it. Discussed risk and possible benefits. * Too late to start Tamiflu. Most effective when started within 48 hours of symptoms onset * Lots of rest * Increase Fluids water, Gatorade, powerade, pedialyte,if /toddler/child * Alternate Tylenol and / or ibuprofen as discussed for fever, aches, chills Follow up IMMEDIATELY with your family doctor for new or worsening Symptoms OR no noticeable improvement over the next 48-72 hours, 911 for difficulty or breathing * You or your child area contagious until no fever, aches, chills for 24 hours with medication for symptoms * Help Prevent the spread of influenza: * ?Wash your hands often. Use soap and water. Wash your hands after you use the bathroom, change a child's diapers, or sneeze. Wash your hands before you prepare or eat food. Use gel hand cleanser that has 60% alcohol, when soap and water are not available. Do not touch your eyes, nose, or mouth unless you have washed your hands first. * Cover your mouth when you sneeze or cough. Cough into a tissue or the bend of your arm. If you use a tissue, throw it away immediately and wash your hands. * Clean shared items with a germ-killing sleeping room cleaner. Clean table surfaces, doorknobs, and light switches. Do not share towels, silverware, and dishes with people who are sick. Wash bed sheets, towels, silverware, and dishes with soap and water. * Wear a mask over your mouth and nose if you are sick. The face mask may help protect others from becoming infected with the flu. Wear the mask when in common areas of your home or if you seek care with a healthcare provider. * Stay away from others if you are sick. Stay at home until 24 hours after your fever and symptoms are gone. Clinical Impressions Clinical Impression: Influenza Stand Alone Forms Stand Alone Forms: Work/School Release Instructions Patient Instructions: Influenza, DI for Influenza -- Adult Discharge ED Provider: Carli Valentine [facility] [place] HPI General Stated complaint: cough, sore throat, body aches, fever Mode of Arrival: Ambulatory Source of Information: Patient Limitations: No Limitations Time Seen by Provider: 06/10/23 19:05 Description of Symptoms (Recalled from Triage Doc. by RN): PATIENT C/O BODY ACHES, SORE THROAT, LOW-GRADE FEVER, WEAKNESS, FEELING TIRED, AND CONGESTION X 2 DAYS HEENT Symptoms (Recalled from RN notes): Yes Resp Symptoms (Recalled from RN notes): No Skin Symptoms (Recalled from RN notes): No MS Symptoms (Recalled from RN notes): No Functional Status (Recalled from RN notes): WNL History of Present Illness Provider Complaint: Patient states that several of the people at work has the flu and now he is having symptoms States that for the last couple of days he has been having chills, body aches, headache, nasal congestion and sore throat so today when he was not feeling any better he came in to get checked Related Data Previous Rx's Medication Instructions Recorded budesonide-formoterol HFA 80 1 inh inhalation QID PRN shortness 10/20/22 mcg-4.5 mcg/actuation aerosol of breath or wheezing 90 days inhaler (Symbicort) #10.2 grams Allergies Allergy/AdvReac Type Severity Reaction Status Date / Time penicillin G [PENICILLIN G] Allergy Intermediate I-RASH Verified 01/14/23 14:58 Worker's Comp Is this a Worker's Comp case?: No [facility] Disclaimer: The information contained in this section may have been updated after the patient was seen, as this information can be updated by other users. Medical History (Updated 06/10/23 @ 19:12 by Carli Valentine, MICHAEL) Asthma Chest pain, atypical Contact dermatitis due to poison vine Dyspnea on exertion Mild intermittent asthma SOB (shortness of breath) Surgical History History of tonsillectomy Family History Other Asthma Hypertension Mild intermittent asthma 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 (Updated 10/20/22 @ 10:11 by Fátima Pastrana Smoking Status: Never smoker alcohol intake: never substance use type: denies use current occupational status: other Travel in the last 8 weeks: Inside the [place] household members: family housing: house ROS Obtained: Yes All systems reviewed & no additional complaints except as documented and Yes Systems reviewed as appropriate & no additional complaints except as documented Constitutional Constitutional: Reports system reviewed and no additional complaints, except as documented, Reports as per HPI, Reports body ache, Reports chills, Reports fever(s) and Reports headache(s) ENT Ears, Nose, Mouth, and Throat: Reports system reviewed and no additional complaints, except as documented, Reports as per HPI, Reports headache(s), Reports nasal congestion, Reports nasal discharge and Reports sore throat Cardiovascular Cardiovascular: Reports system reviewed and no additional complaints, except as documented and Reports as per HPI Respiratory Respiratory: Reports system reviewed and no additional complaints, except as documented and Reports as per HPI Gastrointestinal Gastrointestingal: Reports system reviewed and no additional complaints, except as documented and as per HPI Musculoskeletal Musculoskeletal: Reports system reviewed and no additional complaints, except as documented and Reports as per HPI Neurologic Neurologic: Reports headache(s) Physical Exam General General appearance: alert and in no apparent distress ENT ENT exam: Present mucous membranes moist Expanded ENT Exam Nose exam: Absent sinus tenderness Throat exam: Present normal inspection Chest Chest inspection: Present normal inspection and symmetric chest wall rise Respiratory Respiratory exam: Present normal lung sounds bilaterally; Absent respiratory distress or wheezes Cardiovascular Cardiovascular exam: Present regular rate, normal rhythm and normal heart sounds Abdominal Exam Abdominal exam: Present soft and normal bowel sounds; Absent distention or tenderness Neurological Exam Neurological exam: Present alert, oriented X3 and normal gait Medical Decision Making [place] Inquiry Pt receiving controlled substance: No [place] was queried for this patient: No Vital Signs: 06/10/23 18:35 Temperature 99.9 F H Temperature Source Oral Pulse Rate [Left Brachial] 92 H Respiratory Rate 20 Blood Pressure [Left Arm] 134/68 Blood Pressure Mean [Left Arm] 90 Blood Pressure Source [Left Arm] Automatic Cuff Blood Pressure Position [Left Arm] Sitting 02 Sat by Pulse Oximetry 98 Oxygen Delivery Method Room Air Lab Data Lab results reviewed: Yes I reviewed the patient's lab results.
[2023-06-10 19:11] LABS: UTC Strep Screen (Rapid) Negative (Negative)
[2023-06-10 19:12] LABS: UTC Influenza A Antigen Negative (Negative); UTC Influenza B Antigen Positive (Negative)
[2023-06-10 19:17] VITALS: BP 134/68; PULSE 92; RESP 20; TEMP 37.7; O2SAT 98
== END 2023-06-10 19:24 | disposition home or self-care (01) ==
PROVIDERS: Emergency Provider Nurse Practitioner; PCP Nurse Practitioner Family
DX: J10.1 Influenza due to other identified influenza virus with other respiratory manifestations (principal); R05.9 Cough, unspecified; R07.0 Pain in throat; R50.9 Fever, unspecified; R53.1 Weakness; R53.83 Other fatigue; R09.81 Nasal congestion; J45.20 Mild intermittent asthma, uncomplicated
CPT/HCPCS: 87804; 87880; 99212; 99214; G0463

== ENCOUNTER 2023-11-11 14:08 | Emergency (ER) | payer OTHER, SELFPAY ==
[2023-11-11 14:25] VITALS: BP 130/86; PULSE 97; RESP 20; TEMP 37.3; O2SAT 100; BMI 18.6
--- NOTE | 2023-11-11 14:43 | EXP.UTC ---
Discharge Plan Disposition Patient Disposition: Home, Self-Care Condition: Good Prescriptions Prescriptions: New gvafxrriszkuxhf-lyidykrxr-KA [Bromfed DM] 2-30-10 mg/5 mL syrup 10 ml PO Q4-6H PRN (Reason: sinus symptoms/cough) Qty: 200 0RF Referrals Follow up/Referrals: Tyler Naik APRN [Primary Care Provider] - See instructions Activity Restrictions/Add. Instructions Additional Instructions/Restrictions: If symptoms persist or worsen, follow up with PCP. Frantz Tylenol/Ibuprofen for pain/fever. Clinical Impressions Clinical Impression: Upper respiratory infection, viral Instructions Patient Instructions: DI for Viral Upper Respiratory Infection -- Adult Discharge ED Provider: Jolene Tejada [facility] General Stated complaint: Fatigue, bodyaches Mode of Arrival: Ambulatory Source of Information: Patient Limitations: No Limitations Time Seen by Provider: 11/11/23 14:31 Description of Symptoms (Recalled from Triage Doc. by RN): PATIENT C/O BODY CHILLS, FATIGUE, HEADACHE, SORE THROAT, AND COUGH X 2 DAYS HEENT Symptoms (Recalled from RN notes): Yes Resp Symptoms (Recalled from RN notes): Yes Skin Symptoms (Recalled from RN notes): No MS Symptoms (Recalled from RN notes): No Functional Status (Recalled from RN notes): WNL History of Present Illness Provider Complaint: Pt reports that his symptoms started 2 days ago with body aches, chills, runny nose, cough, sore throat, fatigue, and headache. He states that he did an at home Covid test that was negative. He states that he took Tylenol last night around 9 pm. Denies any sick contacts. Related Data Previous Rx's Medication Instructions Recorded glfbfvdglojhcdo-jfhyuwifvvyxxeh-CB 10 ml PO Q4-6H PRN sinus 11/11/23 2 mg-30 mg-10 mg/5 mL oral syrup symptoms/cough #200 mL (Bromfed DM) Allergies Allergy/AdvReac Type Severity Reaction Status Date / Time penicillin G [PENICILLIN G] Allergy Intermediate I-RASH Verified 01/14/23 14:58 Worker's Comp Is this a Worker's Comp case?: No [facility] Disclaimer: The information contained in this section may have been updated after the patient was seen, as this information can be updated by other users. Medical History (Updated 11/11/23 @ 15:00 by Jolene Tejada APRN) Mild intermittent asthma Dyspnea on exertion Asthma SOB (shortness of breath) Chest pain, atypical Contact dermatitis due to poison vine Surgical History History of tonsillectomy Family History Other Asthma Hypertension Mild intermittent asthma 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 (Updated 10/20/22 @ 10:11 by Fátima Ayala) Smoking Status: Never smoker alcohol intake: never substance use type: denies use current occupational status: other Travel in the last 8 weeks: Inside the [place] household members: family housing: house ROS Obtained: Yes All systems reviewed & no additional complaints except as documented Constitutional Constitutional: Reports system reviewed and no additional complaints, except as documented, Reports body ache, Reports chills, Reports fatigue and Reports malaise Eyes Eyes: Reports system reviewed and no additional complaints, except as documented ENT Ears, Nose, Mouth, and Throat: Reports system reviewed and no additional complaints, except as documented, Reports nasal congestion, Reports nasal discharge, Reports post nasal drip and Reports sore throat Cardiovascular Cardiovascular: Reports system reviewed and no additional complaints, except as documented Respiratory Respiratory: Reports system reviewed and no additional complaints, except as documented and Reports non-productive cough Gastrointestinal Gastrointestingal: Reports system reviewed and no additional complaints, except as documented Genitourinary Male Genitourinary: Reports system reviewed and no additional complaints, except as documented Musculoskeletal Musculoskeletal: Reports system reviewed and no additional complaints, except as documented Integumentary/Breasts Skin/Breast: Reports system reviewed and no additional complaints, except as documented Neurologic Neurologic: Reports system reviewed and no additional complaints, except as documented Endocrine Endocrine: Reports system reviewed and no additional complaints, except as documented and Reports fatigue Hematologic/Lymphatic Henatologic/Lymphatic: Reports system reviewed and no additional complaints, except as documented Allergic/Immunologic Allergic/Immunologic: Reports system reviewed and no additional complaints, except as documented Physical Exam General General appearance: alert Comment: ill appearing Head Head exam: atraumatic and normocephalic Eye Eye exam: Present normal appearance Expanded ENT Exam External ear exam: Present normal external inspection Nose exam: Absent sinus tenderness Nasal speculum exam: Bilateral: purulent discharge Mouth exam: Present normal external inspection Teeth exam: Present normal inspection Throat exam: Present tonsillar erythema Comment: large amount of post nasal drainage Neck Neck exam: Present normal inspection Chest Chest inspection: Present normal inspection and symmetric chest wall rise Respiratory Respiratory exam: Present normal lung sounds bilaterally Cardiovascular Cardiovascular exam: Present regular rate, normal rhythm and normal heart sounds Abdominal Exam Abdominal exam: Present soft and normal bowel sounds Extremities Exam Extremities exam: Present normal inspection Back Exam Back exam: Present normal inspection Neurological Exam Neurological exam: Present alert and oriented X3 Psychiatric Psychiatric exam: Present normal affect and normal mood Skin Skin exam: Present warm, dry and intact Lymphatic Lymphatic Findings: no adenopathy Medical Decision Making Ladarius Inquiry Pt receiving controlled substance: No Ladarius was queried for this patient: No Vital Signs: 11/11/23 14:25 Temperature 99.1 F Temperature Source Oral Pulse Rate [Left Brachial] 97 H Respiratory Rate 20 Blood Pressure [Left Arm] 130/86 Blood Pressure Mean [Left Arm] 100 Blood Pressure Source [Left Arm] Automatic Cuff Blood Pressure Position [Left Arm] Sitting 02 Sat by Pulse Oximetry 100 Oxygen Delivery Method Room Air
[2023-11-11 15:02] VITALS: BP 130/86; PULSE 97; RESP 20; TEMP 37.3; O2SAT 100
[2023-11-11 15:07] LABS: UTC Influenza A Antigen Negative (Negative); UTC Strep Screen (Rapid) Negative (Negative)
[2023-11-11 15:08] LABS: UTC Influenza B Antigen Negative (Negative)
[2023-11-11 15:23] LABS: Adenovirus,PCR Not Detected (NotDetected); Bordetella Pertussis Not Detected (NotDetected); Chlamydophila Pneumoniae, PCR Not Detected (NotDetected); Coronavirus 19, PCR Not Detected (NotDetected); Coronavirus 229E Not Detected (NotDetected); Coronavirus NL63 Not Detected (NotDetected); Coronavirus OC43 Not Detected (NotDetected); Coronovirus HKU1,PCR Not Detected (NotDetected); Human Metapneumovirus Not Detected (NotDetected); Influenza A, PCR Not Detected (NotDetected); Influenza AH1, 2009 Not Detected (NotDetected); Influenza AH1, PCR Not Detected (NotDetected); Influenza AH3,PCR Not Detected (NotDetected); Influenza B, PCR Not Detected (NotDetected); Mycoplasma Pneumoniae, PCR Not Detected (NotDetected); Parainfluenza 1, PCR Not Detected (NotDetected); Parainfluenza 2, PCR Not Detected (NotDetected); Parainfluenza 3, PCR Not Detected (NotDetected); Parainfluenza 4, PCR Not Detected (NotDetected); Respiratory Syncytial Virus Not Detected (NotDetected); Rhinovirus/Enterovirus Not Detected (NotDetected)
== END 2023-11-11 15:12 | disposition home or self-care (01) ==
PROVIDERS: Emergency Provider Nurse Practitioner Family; PCP Nurse Practitioner Family
DX: R05.9 Cough, unspecified (principal); R51.9 Headache, unspecified; R07.0 Pain in throat; J06.9 Acute upper respiratory infection, unspecified; B34.9 Viral infection, unspecified
CPT/HCPCS: 87581; 87632; 87635; 87798; 87804; 87880; 99212; 99214; G0463

== ENCOUNTER 2023-11-14 20:24 | Emergency (ER) | payer OTHER, SELFPAY ==
[2023-11-14 20:25] VITALS: BP 130/82; PULSE 130; RESP 20; TEMP 38.4; O2SAT 96; BMI 18.6
--- NOTE | 2023-11-14 20:49 | XR_ITS ---
PROCEDURE INFORMATION: Exam: XR Chest Exam date and time: 11/14/2023 8:50 PM Age: 23 years old Clinical indication: Cough and dyspnea; Additional info: Dyspnea, cough TECHNIQUE: Imaging protocol: Radiologic exam of the chest. Views: 2 views. COMPARISON: CR XR CHEST 2V 08/01/2022 5:13 PM FINDINGS: Lungs: There is consolidation in the right middle lobe concerning for pneumonia. Pleural spaces: No large effusion or pneumothorax. Heart/Mediastinum: No evidence of mediastinal widening or cardiac silhouette enlargement; the mediastinum and heart appear within normal limits for contour and size. Bones/joints: No evidence of acute osseous abnormalities within the visualized portions of the thoracic spine and ribs. Osseous structures appear appropriate for patient age. IMPRESSION: There is consolidation in the right middle lobe concerning for pneumonia.
--- NOTE | 2023-11-14 20:53 | ECG_ITS ---
APPROVED REPORT Exam: Resting ECG HR:104 bpm ECG Measurements Heart Rate 104 AXES OH 104 P 68 QRSd 114 QRS 89 QT 322 T 68 QTc 382 Conclusion SINUS TACHYCARDIA WITH SHORT OH INTERVAL INCOMPLETE RIGHT BUNDLE BRANCH BLOCK [90+ ms QRS DURATION, TERMINAL R IN V1/V2, 40+ ms S IN I/aVL/V4/V5/V6] ABNORMAL RHYTHM ECG UNCONFIRMED REPORT Electronically signed by : Collin Menendez, 11/14/2023 22:57:44
--- NOTE | 2023-11-14 20:53 | HMH.EDGENADL ---
Discharge Plan Disposition Patient Disposition: Home, Self-Care Prescriptions Prescriptions: New azithromycin 250 mg tablet 250 mg PO DAILY 4 Days Qty: 4 0RF Rx Instructions: start on day 2 of therapy (day after ED visit) albuterol sulfate 90 mcg/actuation HFA aerosol inhaler 4 inh inhalation Q4H PRN (Reason: shortness of breath or wheezing) Qty: 8.5 0RF Rx Instructions: 4 puffs every 4 hours for 48 hours then as needed for shortness of breath or wheezing following prednisone 50 mg tablet 50 mg PO DAILY 5 Days Qty: 5 0RF Rx Instructions: Please begin 1 day after ED visit amoxicillin-pot clavulanate 875-125 mg tablet 1 tab PO BID 7 Days Qty: 14 0RF No Action knwqgklnethgcls-nigdsgrkq-QI [Bromfed DM] 2-30-10 mg/5 mL syrup 10 ml PO Q4-6H PRN (Reason: sinus symptoms/cough) Qty: 200 0RF Referrals Follow up/Referrals: Tyler Naik APRN [Primary Care Provider] - See instructions Activity Restrictions/Add. Instructions Additional Instructions/Restrictions: Your symptoms are consistent with community-acquired pneumonia please follow the primary care doctor to ensure resolution return with any significant worsening shortness of breath or other concerns. Clinical Impressions Clinical Impression: CAP (community acquired pneumonia), Chest pain, pleuritic, Acute viral syndrome, Asthma exacerbation Discharge ED Provider: Milton Menendez General Adult HPI General Chief complaint: Fever Stated complaint: soa,body aches fever Time Seen by Provider: 11/14/23 20:43 Mode of Arrival: Ambulatory Source of Information: Patient Limitations: No Limitations Description of Symptoms (Recalled from ER Triage Doc. by RN): pt began having s/s 4 days ago of uri including fever, cough and sore throat and body aches History of Present Illness HPI narrative: Patient is a 23-year-old male presents today with fever cough body aches and pleuritic chest pain. States has been ongoing for the last 4 days. States he has discomfort with inspiration. Has felt bubbling in his chest. Denies any exertional symptoms at the moment. Has been taking Tylenol and ibuprofen most recently 6 hours ago unsure as to the exact dose of medications has been taking. Has a history of asthma symptoms been ongoing for 4 days at this point. Denies any sore throat ear pain rash urinary symptoms or other complaints. No sick contacts that he is aware of. Related Data Previous Rx's Medication Instructions Recorded lxszvagwfkqybpd-pixlkugbayovxti-AZ 10 ml PO Q4-6H PRN sinus 11/11/23 2 mg-30 mg-10 mg/5 mL oral syrup symptoms/cough #200 mL (Bromfed DM) albuterol sulfate 90 mcg/actuation 4 inh inhalation Q4H PRN shortness 11/14/23 aerosol inhaler of breath or wheezing #8.5 grams amoxicillin 875 mg-potassium 1 tab PO BID 7 days #14 tabs 11/14/23 clavulanate 125 mg tablet azithromycin 250 mg tablet 250 mg PO DAILY 4 days #4 tabs 11/14/23 prednisone 50 mg tablet 50 mg PO DAILY 5 days #5 tabs 11/14/23 Allergies Allergy/AdvReac Type Severity Reaction Status Date / Time penicillin G [PENICILLIN G] Allergy Intermediate I-RASH Verified 01/14/23 14:58 [facility] Disclaimer: The information contained in this section may have been updated after the patient was seen, as this information can be updated by other users. Medical History (Updated 11/14/23 @ 22:21 by Milton Menendez MD) Mild intermittent asthma Dyspnea on exertion Asthma SOB (shortness of breath) Chest pain, atypical Contact dermatitis due to poison vine Surgical History History of tonsillectomy Family History Other Asthma Hypertension Mild intermittent asthma 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 (Updated 10/20/22 @ 10:11 by Fátima Ayala) Smoking Status: Never smoker alcohol intake: never substance use type: denies use current occupational status: other Travel in the last 8 weeks: [place] the [place] household members: family housing: house ROS Obtained: Yes All systems reviewed & no additional complaints except as documented Physical Exam General General appearance: alert and in no apparent distress Respiratory Respiratory exam: Present normal lung sounds bilaterally; Absent respiratory distress Cardiovascular Cardiovascular exam: Present tachycardia (Heart rate 130 on my exam good peripheral perfusion) Neurological Exam Neurological exam: Present alert and oriented X3 Medical Decision Making Ladarius Inquiry Pt receiving controlled substance: No Vital Signs: 11/14/23 20:25 11/14/23 20:41 11/14/23 20:54 Temperature 101.1 F H Temperature Source Oral Oral Pulse Rate 117 H Pulse Rate [Right Radial] 130 H Respiratory Rate 20 Blood Pressure 112/83 Blood Pressure [Right Arm] 130/82 Blood Pressure Mean [Right Arm] 98 02 Sat by Pulse Oximetry 96 95 Oxygen Delivery Method Room Air Room Air 11/14/23 21:17 11/14/23 21:30 Temperature Temperature Source Pulse Rate 113 H 109 H Pulse Rate [Right Radial] Respiratory Rate 18 20 Blood Pressure 118/81 119/80 Blood Pressure [Right Arm] Blood Pressure Mean [Right Arm] 02 Sat by Pulse Oximetry 99 99 Oxygen Delivery Method Room Air Room Air Lab Data Lab results reviewed: Yes I reviewed the patient's lab results. Lab Results 11/14/23 20:49: SARS-CoV-2 (PCR) Not detected, Influenza A Untype (PCR) Not detected, Influenza Type B (PCR) Not detected 11/14/23 21:15: WBC 9.8, RBC 4.97, Hgb 15.2, Hct 45.3, MCV 91.3, MCH 30.7, MCHC 33.6, RDW 12.8, Plt Count 206, MPV 7.4, Neut % (Auto) 75.3, Lymph % (Auto) 13.7, [place] % (Auto) 8.2, Eos % (Auto) 0.3, Baso % (Auto) 2.5 H, Neut # (Auto) 7.4, Lymph # (Auto) 1.4, [place] # (Auto) 0.8, Eos # (Auto) 0.0, Baso # (Auto) 0.3 H, Sodium 138, Potassium 3.6, Chloride 100, Carbon Dioxide 29, Anion Gap 12.6, BUN 11, Creatinine 0.80, Estimated Creat Clear 125, Estimated GFR 119, Est GFR ( Amer) 144, Glucose 106 H, Calcium 8.9, Total Bilirubin 0.5, AST 28, ALT 19, Alkaline Phosphatase 61, Troponin I < 0.01, Total Protein 7.4, Albumin 4.3, Globulin 3.1, Albumin/Globulin Ratio 1.4 11/14/23 21:15 11/14/23 21:15 Orders (Tests/Meds): ED MEDICATIONS Generic Name Dose Route Start Last Admin Trade Name Freq PRN Reason Stop Dose Admin Amoxicillin/Clavulanate Potassium 1 each 11/14/23 22:19 Amoxicillin/Clavulanate Potassium 875/125mg Tablet PO 11/14/23 22:20 ONCE ONE Azithromycin 500 mg 11/14/23 22:19 Azithromycin 250mg Tablet PO 11/14/23 22:20 ONCE ONE Prednisone 60 mg 11/14/23 22:19 Prednisone 20mg Tab PO 11/14/23 22:20 ONCE ONE Discontinued Medications Generic Name Dose Route Start Last Admin Trade Name [place] PRN Reason Stop Dose Admin Acetaminophen 1,000 mg 11/14/23 20:48 11/14/23 21:14 Acetaminophen 500mg Tab PO 11/14/23 20:49 1,000 mg ONCE ONE Administration Sodium Chloride 1,000 mls @ 999 mls/hr 11/14/23 21:00 11/14/23 21:14 Sod Chlor 0.9% 1000ml Bag IV 11/14/23 22:00 999 mls/hr .Q1H1M SKYE Administration Ibuprofen 600 mg 11/14/23 20:48 11/14/23 21:14 Ibuprofen 600 Mg Tablet PO 11/14/23 20:49 600 mg ONCE ONE Administration ORDERS Category Date Time Status Chest XR 2 view (NOT portable) [XR chest 2V] Stat Exams 11/14/23 20:49 Taken CBC w/Auto Diff [Complete Blood Count Auto Diff] Stat Lab 11/14/23 21:15 Completed CMP [Comprehensive Metabolic Panel] Stat Lab 11/14/23 21:15 Completed Rapid PCR Covid and Flu A/B Stat Lab 11/14/23 20:49 Completed Trop I [Troponin I] Stat Lab 11/14/23 21:15 Completed Troponin I Q3H Lab 11/14/23 23:52 Ordered Troponin I Q3H Lab 11/15/23 02:52 Ordered Medical Decision Narrative: 23-year-old presents today most likely with a viral syndrome. He is outside of any treatment window for antiviral medications. He is significantly tachycardic with a heart rate of 130 he is febrile at the moment. Differential includes viral syndrome, pericarditis, pulmonary embolism, pneumonia etc. Will get a chest x-ray check basic blood work including a single troponin EKG. Give IV fluids Tylenol and ibuprofen assuming that his vital signs improved and his workup is negative will be comfortable with him being managed in an outpatient setting. Chest x-ray performed which I first interpreted shows right-sided consolidation consistent with community-acquired pneumonia patient has a documented penicillin allergy but has had amoxicillin without any complaints states his mom told him he had some type of allergy as a baby but this clinically does not sound like he has had an allergy he was given Augmentin plus azithromycin given his underlying asthma. Patient on reassessment heart rate is down less than 110 consistently feels much better serial respiratory exams normal no respiratory distress or hypoxemia. He is considering and she states he has been wheezing we will escalate with his asthma and give steroids and albuterol in addition to the antibiotics. He was discharged in stable condition. Precautions emphasized. Critical Care Critical Care Time Critical Care Time: No
[2023-11-14 20:54] VITALS: BP 112/83; PULSE 117; O2SAT 95
[2023-11-14] MEDS: ACETAMINOPHEN 500MG TAB 1000 MG PO (21:14)
[2023-11-14] MEDS: IBUPROFEN 600 MG TABLET PO (21:14)
[2023-11-14] MEDS: 0.9 % SODIUM CHLORIDE 1000ML 1,000 ML 999 ML IV (21:14)
[2023-11-14 21:17] VITALS: BP 118/81; PULSE 113; RESP 18; O2SAT 99
[2023-11-14 21:21] LABS: Coronavirus 19, PCR Not Detected (NotDetected); Influenza A, PCR Not Detected (NotDetected); Influenza B, PCR Not Detected (NotDetected)
[2023-11-14 21:26] LABS: Basophils # 0.3 K/mm3 (0-0.2); Basophils % 2.5 % (0.1-2.0); Eosinophils % 0.3 % (0.1-12.0); Hematocrit 45.3 % (42.0-52.0); Hemoglobin 15.2 g/dL (14.1-18.0); Lymphocytes # 1.4 K/mm3 (0.7-4.5); Lymphocytes % 13.7 % (10-50); Mean Corpuscular HGB Conc 33.6 g/dL (31.8-35.4); Mean Corpuscular Hemoglobin 30.7 pg (27.0-31.2); Mean Corpuscular Volume 91.3 fl (80-94); Mean Platelet Volume 7.4 fl (7.4-10.4); Monocytes # 0.8 K/mm3 (0.1-1.0); Monocytes % 8.2 % (1.7-9.3); Neutrophils # 7.4 K/mm3 (1.8-7.8); Neutrophils % 75.3 % (37.0-80.0); Platelet Count 206 K/mm3 (142-424); Red Blood Count 4.97 M/mm3 (4.60-6.20); Red Cell Distribution Width 12.8 % (11.5-17.5); White Blood Count 9.8 K/mm3 (4.8-10.8)
[2023-11-14 21:30] VITALS: BP 119/80; PULSE 109; RESP 20; O2SAT 99
[2023-11-14 21:33] LABS: Chloride 100 mmol/L (98-107); Potassium 3.6 mmoL/L (3.5-5.1); Sodium 138 mmol/L (136-145)
[2023-11-14 21:36] LABS: Alanine Aminotransferase 19 U/L (12-78); Albumin Level 4.3 g/dl (3.5-5.0); Albumin/Globulin Ratio 1.4 (1.1-1.8); Alkaline Phosphatase 61 U/L (38-126); Anion Gap 12.6 mEq/L (5-15); Aspartate Amino Transferase 28 U/L (17-59); Bilirubin,Total 0.5 mg/dl (0.2-1.3); Blood Urea Nitrogen 11 mg/dl (9-20); Carbon Dioxide 29 mmol/L (22.0-30.0); Creatinine Clearance Estimated 125 mL/min (50-200); Estimated Glomerular Filt Rate 119 ml/min (>60); GFR (African American) 144 ML/MIN (>60); Globulin 3.1 g/dL (1.3-3.2); Total Protein,Serum 7.4 g/dl (6.3-8.2)
[2023-11-14 21:37] LABS: Calcium 8.9 mg/dl (8.4-10.2); Glucose 106 mg/dl (74-100)
[2023-11-14 21:55] LABS: Troponin I < 0.01 ng/ml (0.00-0.034)
[2023-11-14] MEDS: AZITHROMYCIN 250MG TABLET 500 MG PO (22:25)
[2023-11-14] MEDS: AMOXICILLIN/CLAVULANATE POTASSIUM 875/125MG TABLET 1 EACH PO (22:25)
[2023-11-14] MEDS: predniSONE 20MG TAB 60 MG PO (22:26)
[2023-11-14 22:32] VITALS: BP 118/71; PULSE 109; RESP 20; TEMP 36.7; O2SAT 98
== END 2023-11-14 22:34 | disposition home or self-care (01) ==
PROVIDERS: Emergency Provider Student in an Organized Health Care Education/Training Program; PCP Nurse Practitioner Family
DX: R07.81 Pleurodynia (principal); J18.9 Pneumonia, unspecified organism; R50.9 Fever, unspecified; R00.0 Tachycardia, unspecified; J45.901 Unspecified asthma with (acute) exacerbation
CPT/HCPCS: 71046; 80053; 84484; 85025; 87636; 93005; 96360; 99284

== ENCOUNTER 2024-01-20 14:44 | Emergency (ER) | payer OTHER, SELFPAY ==
--- NOTE | 2024-01-20 14:44 | ECG_ITS ---
APPROVED REPORT Exam: Resting ECG HR:78 bpm ECG Measurements Heart Rate 78 AXES OK 134 P 72 QRSd 119 QRS 90 QT 366 T 64 QTc 399 Conclusion SINUS RHYTHM WITH SINUS ARRHYTHMIA INCOMPLETE RIGHT BUNDLE BRANCH BLOCK [90+ ms QRS DURATION, TERMINAL R IN V1/V2, 40+ ms S IN I/aVL/V4/V5/V6] BORDERLINE ECG Electronically signed by : ANTONIO LUEVANO, 01/21/2024 23:21:20
[2024-01-20 14:47] VITALS: BP 113/92; PULSE 90; RESP 18; TEMP 37.1; O2SAT 100; BMI 18.6
--- NOTE | 2024-01-20 14:55 | XR_ITS ---
FINAL REPORT CLINICAL HISTORY: chest pain COMPARISON: 07/31/2019 FINDINGS: The heart size is normal. The mediastinum is normal. There is no focal infiltrate or edema. There are no pleural effusions. There is no pneumothorax. There is no osseous abnormality. IMPRESSION: No acute cardiopulmonary process Reviewed, Interpreted and Dictated by Matheus Vega MD Transcribed by Sweta Gerardo Authenticated and [facility]
[2024-01-20 15:00] VITALS: BP 124/75; PULSE 72; O2SAT 100
[2024-01-20 15:15] LABS: Basophils # 0.1 K/mm3 (0-0.2); Basophils % 1.8 % (0.1-2.0); Eosinophils # 0.1 K/mm3 (0.0-0.4); Eosinophils % 1.1 % (0.1-12.0); Hematocrit 49.2 % (42.0-52.0); Hemoglobin 15.4 g/dL (14.1-18.0); Lymphocytes # 2.7 K/mm3 (0.7-4.5); Lymphocytes % 41.6 % (10-50); Mean Corpuscular HGB Conc 31.3 g/dL (31.8-35.4); Mean Corpuscular Hemoglobin 29.8 pg (27.0-31.2); Mean Corpuscular Volume 95.1 fl (80-94); Mean Platelet Volume 7.6 fl (7.4-10.4); Monocytes # 0.5 K/mm3 (0.1-1.0); Monocytes % 7.6 % (1.7-9.3); Neutrophils # 3.1 K/mm3 (1.8-7.8); Platelet Count 248 K/mm3 (142-424); Red Blood Count 5.17 M/mm3 (4.60-6.20); Red Cell Distribution Width 13.3 % (11.5-17.5); White Blood Count 6.5 K/mm3 (4.8-10.8)
--- NOTE | 2024-01-20 15:16 | ED_ITS ---
Discharge Plan Disposition Patient Disposition: Home, Self-Care Prescriptions Prescriptions: No Action benzonatate 100 mg capsule 100 mg PO TID PRN (Reason: cough) Qty: 30 0RF pzfueytlrqqcmav-vmqwokssr-BD [Bromfed DM] 2-30-10 mg/5 mL syrup 10 ml PO Q4-6H PRN (Reason: sinus symptoms/cough) Qty: 200 0RF albuterol sulfate 90 mcg/actuation HFA aerosol inhaler 4 inh inhalation Q4H PRN (Reason: shortness of breath or wheezing) Qty: 8.5 0RF Rx Instructions: 4 puffs every 4 hours for 48 hours then as needed for shortness of breath or wheezing following Activity Restrictions/Add. Instructions Additional Instructions/Restrictions: No evidence of an acute cardiopulmonary emergency please take 600 mg of wqsr-usp-ywbgvgl ibuprofen 3 times a day as needed with food and return with a significant worsening of your symptoms otherwise you may closely follow-up with your primary care doctor. Clinical Impressions Clinical Impression: Pleurisy Print Language Print Language: Moh[place] Discharge ED Provider: Virgilio Bautista HPI <Milton Menendez MD - Last Filed: 01/20/24 15:44> General Chief Complaint: Chest Pain Stated Complaint: chest pain Time Seen by Provider: 01/20/24 15:06 Mode of Arrival: Ambulatory Source of Information: Patient Limitations: No Limitations Description of Symptoms (Recalled from ER Triage Doc. by RN): pt c/o intermittant L chest pain x2d. pt states it started today when he was bent over and lifting. pt states his pain is a 9/10 and sharp. pt reports when he was bending/lifting he felt a little SOA. pt has no cardiac hx. History of Present Illness HPI narrative: 23-year-old male with a history of spontaneous pneumothorax in 2020 presents today with left-sided pleuritic chest pain. States that it is worse with inspiration and that he has noticed it worsening with certain types of movements particular flying back and changing positions and once he is in that position for extended period time it goes away. It is described as being sharp. No significant dyspnea or exertional symptoms nausea and vomiting or radiation. His main concern was the pneumothorax he had in the past. Denies any other significant past medical history. Did have influenza/pneumonia several months ago but has completely resolved from that. No recent URIs. Related Data Previous Rx's ?Medication ?Instructions ?Recorded alogwhrdjqocgdu-bxurvnqvkwobeky-JU 10 ml PO Q4-6H PRN sinus 11/11/23 2 mg-30 mg-10 mg/5 mL oral syrup symptoms/cough #200 mL (Bromfed DM) albuterol sulfate 90 mcg/actuation 4 inh inhalation Q4H PRN shortness 11/14/23 aerosol inhaler of breath or wheezing #8.5 grams benzonatate 100 mg capsule 100 mg PO TID PRN cough #30 caps 12/07/23 Allergies Allergy/AdvReac Type Severity Reaction Status Date / Time penicillin G [PENICILLIN G] Allergy Intermediate I-RASH Verified 12/07/23 10:31 PFS <Milton Menendez MD - Last Filed: 01/20/24 15:44> [facility] Disclaimer: The information contained in this section may have been updated after the patient was seen, as this information can be updated by other users. Medical History Mild intermittent asthma Dyspnea on exertion Asthma SOB (shortness of breath) Chest pain, atypical Contact dermatitis due to poison vine Surgical History History of tonsillectomy Family History Other Asthma Hypertension Mild intermittent asthma 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 Smoking Status: Never smoker alcohol intake: never substance use type: denies use current occupational status: other Travel in the last 8 weeks: Inside the [place] household members: family housing: house <Milton Menendez MD - Last Filed: 01/20/24 15:44> ROS Obtained: Yes All systems reviewed & no additional complaints except as documented Physical Exam <Milton Menendez MD - Last Filed: 01/20/24 15:44> General General appearance: alert Respiratory Respiratory exam: Present normal lung sounds bilaterally; Absent respiratory distress Cardiovascular Cardiovascular exam: Present regular rate and normal rhythm Abdominal Exam Abdominal exam: Present soft; Absent distention or tenderness Neurological Exam Neurological exam: Present alert and oriented X3 HEART Score <Milton Menendez MD - Last Filed: 08/22/24 15:44> HEART Score HEART Score assessment performed?: Yes History (anamnesis): Slightly suspicious ECG: Non-specific disturbance Age: <45 years Risk factors: No known risk factors Troponin: </= normal limit HEART Score: 1 <Virgilio Bautista MD - Last Filed: 01/20/24 18:58> HEART Score HEART Score: 1 Critical Care <Milton Menendez MD - Last Filed: 01/20/24 15:44> Critical Care Time Critical Care Time: No Medical Decision Making <Milton Menendez MD - Last Filed: 01/20/24 15:44> [place] Inquiry Pt receiving controlled substance: No Vital Signs Vital Signs: 01/20/24 14:47 01/20/24 15:00 01/20/24 15:47 Temperature 98.8 F 98.0 F Temperature Source Oral Pulse Rate 72 74 Pulse Rate [Left] 90 Respiratory Rate 18 16 Blood Pressure 124/75 122/72 Blood Pressure [Right Arm] 113/92 H Blood Pressure Mean [Right Arm] 99 Blood Pressure Source [Right Arm] Automatic Cuff Blood Pressure Position [Right Arm] Sitting 02 Sat by Pulse Oximetry 100 100 Oxygen Delivery Method Room Air Room Air Lab Data Lab results reviewed: Yes I reviewed the patient's lab results. Labs: Lab Results 01/20/24 14:47: WBC 6.5, RBC 5.17, Hgb 15.4, Hct 49.2, MCV 95.1 H, MCH 29.8, M CHC 31.3 L, RDW 13.3, Plt Count 248, MPV 7.6, Neut % (Auto) 48.0, Lymph % (Auto) 41.6, [place] % (Auto) 7.6, Eos % (Auto) 1.1, Baso % (Auto) 1.8, Neut # (Auto) 3.1, Lymph # (Auto) 2.7, [place] # (Auto) 0.5, Eos # (Auto) 0.1, Baso # (Auto) 0.1, Sodium 140, Potassium 3.7, Chloride 105, Carbon Dioxide 30, Anion Gap 8.7, BUN 9, Creatinine 0.80, Estimated Creat Clear 125, Estimated GFR 119, Est GFR ( Amer) 144, Glucose 86, Calcium 9.6, Total Bilirubin 0.7, AST 29, ALT 19, Alkaline Phosphatase 52, Troponin I < 0.01, Total Protein 7.8, Albumin 4.7, Globulin 3.1, Albumin/Globulin Ratio 1.5 01/20/24 14:47 01/20/24 14:47 Response Orders (Tests/Meds): ED MEDICATIONS Discontinued Medications Generic Name Dose Route Start Last Admin Trade Name [place] PRN Reason Stop Dose Admin Ketorolac Tromethamine 15 mg 01/20/24 15:13 01/20/24 15:17 Ketorolac 30mg/Ml Vial IV 01/20/24 15:14 15 mg ONCE ONE Administration Sodium Chloride 10 ml 01/20/24 14:56 Sodium Chloride 0.9% 10ml Flush Syringe IV 02/19/24 14:55 NEEDED PRN Maintain IV Site ORDERS Category Date Time Status Chest XR -- portable [XR chest portable] Stat Exams 01/20/24 14:55 Completed Complete Blood Count Auto Diff Stat Lab 01/20/24 14:47 Completed Comprehensive Metabolic Panel Stat Lab 01/20/24 14:47 Completed Troponin I Stat Lab 01/20/24 14:47 Completed ECG Data Tracing #1: Attestation: I reviewed this ECG and interpreted as documented below: ECG Narrative: Ventricular to 78 normal sinus rhythm there is an incomplete right bundle branch block no acute ischemic changes noted there is a normal axis MDM Narrative Medical Decision Narrative: 23-year-old male present today with pleuritic chest pain differential includes pleurisy, myocarditis and pericarditis, pneumonia, pneumothorax etc. Chest x- ray was performed which I personally interpreted which shows no acute cardiopulmonary emergency specifically no evidence of any pneumothorax. EKG showed no evidence of acute pericarditis also his symptoms are not consistent with that. Most likely this is idiopathic pleurisy. IV Toradol have been administered will wait for a single troponin to come back and once negative he will be stable for outpatient follow-up and management. Reassessment 343 patient remains very stable. Labs have returned and are unremarkable specifically negative troponin effectively ruling out myocardial involvement with regards to myocarditis. Acute coronary syndrome is extremely unlikely will not get serial troponins. Patient's been advised to take NSAIDs follow-up with his primary care doctor and return with any significant worsening of his symptoms. <Virgilio Bautista MD - Last Filed: 01/20/24 18:58> Vital Signs Vital Signs: 01/20/24 14:47 01/20/24 15:00 01/20/24 15:47 Temperature 98.8 F 98.0 F Temperature Source Oral Pulse Rate 72 74 Pulse Rate [Left] 90 Respiratory Rate 18 16 Blood Pressure 124/75 122/72 Blood Pressure [Right Arm] 113/92 H Blood Pressure Mean [Right Arm] 99 Blood Pressure Source [Right Arm] Automatic Cuff Blood Pressure Position [Right Arm] Sitting 02 Sat by Pulse Oximetry 100 100 Oxygen Delivery Method Room Air Room Air Lab Data Labs: Lab Results 01/20/24 14:47: WBC 6.5, RBC 5.17, Hgb 15.4, Hct 49.2, MCV 95.1 H, MCH 29.8, M CHC 31.3 L, RDW 13.3, Plt Count 248, MPV 7.6, Neut % (Auto) 48.0, Lymph % (Auto) 41.6, [place] % (Auto) 7.6, Eos % (Auto) 1.1, Baso % (Auto) 1.8, Neut # (Auto) 3.1, Lymph # (Auto) 2.7, [place] # (Auto) 0.5, Eos # (Auto) 0.1, Baso # (Auto) 0.1, Sodium 140, Potassium 3.7, Chloride 105, Carbon Dioxide 30, Anion Gap 8.7, BUN 9, Creatinine 0.80, Estimated Creat Clear 125, Estimated GFR 119, Est GFR ( Amer) 144, Glucose 86, Calcium 9.6, Total Bilirubin 0.7, AST 29, ALT 19, Alkaline Phosphatase 52, Troponin I < 0.01, Total Protein 7.8, Albumin 4.7, Globulin 3.1, Albumin/Globulin Ratio 1.5 Response Orders (Tests/Meds): ED MEDICATIONS Discontinued Medications Generic Name Dose Route Start Last Admin Trade Name Freq PRN Reason Stop Dose Admin Ketorolac Tromethamine 15 mg 01/20/24 15:13 01/20/24 15:17 Ketorolac 30mg/Ml Vial IV 01/20/24 15:14 15 mg ONCE ONE Administration Sodium Chloride 10 ml 01/20/24 14:56 Sodium Chloride 0.9% 10ml Flush Syringe IV 02/19/24 14:55 NEEDED PRN Maintain IV Site ORDERS Category Date Time Status Chest XR -- portable [XR chest portable] Stat Exams 01/20/24 14:55 Completed Complete Blood Count Auto Diff Stat Lab 01/20/24 14:47 Completed Comprehensive Metabolic Panel Stat Lab 01/20/24 14:47 Completed Troponin I Stat Lab 01/20/24 14:47 Completed
[2024-01-20] MEDS: KETOROLAC 30MG/ML VIAL 15 MG IV (15:17)
[2024-01-20 15:23] LABS: Alanine Aminotransferase 19 U/L (12-78); Albumin Level 4.7 g/dl (3.5-5.0); Albumin/Globulin Ratio 1.5 (1.1-1.8); Alkaline Phosphatase 52 U/L (38-126); Anion Gap 8.7 mEq/L (5-15); Aspartate Amino Transferase 29 U/L (17-59); Bilirubin,Total 0.7 mg/dl (0.2-1.3); Blood Urea Nitrogen 9 mg/dl (9-20); Calcium 9.6 mg/dl (8.4-10.2); Carbon Dioxide 30 mmol/L (22.0-30.0); Chloride 105 mmol/L (98-107); Creatinine Clearance Estimated 125 mL/min (50-200); Estimated Glomerular Filt Rate 119 ml/min (>60); GFR (African American) 144 ML/MIN (>60); Globulin 3.1 g/dL (1.3-3.2); Glucose 86 mg/dl (74-100); Potassium 3.7 mmoL/L (3.5-5.1); Sodium 140 mmol/L (136-145); Total Protein,Serum 7.8 g/dl (6.3-8.2)
[2024-01-20 15:38] LABS: Troponin I < 0.01 ng/ml (0.00-0.034)
[2024-01-20 15:47] VITALS: BP 122/72; PULSE 74; RESP 16; TEMP 36.7
== END 2024-01-20 15:49 | disposition home or self-care (01) ==
PROVIDERS: Emergency Provider Emergency Medicine; PCP Nurse Practitioner Family
DX: R09.1 Pleurisy (principal); J45.909 Unspecified asthma, uncomplicated
CPT/HCPCS: 71045; 80053; 84484; 85025; 93005; 96374; 99284; J1885

== ENCOUNTER 2025-02-27 15:01 | Outpatient (CLI) | payer OTHER, SELFPAY ==
[2025-02-27 20:17] LABS: Coronavirus 19, PCR Not Detected (NotDetected); Influenza A, PCR Not Detected (NotDetected); Influenza B, PCR Not Detected (NotDetected)
== END 2025-02-27 23:59 ==
LOC: LAB.DROPOF 02-28 08:56
PROVIDERS: PCP Student in an Organized Health Care Education/Training Program; Visit Provider Student in an Organized Health Care Education/Training Program
DX: R05.9 Cough, unspecified (principal)
CPT/HCPCS: 87636